=== PATIENT | female | born 1935 | race American Indian/Alaskan Native ===

== ENCOUNTER 2018-01-29 16:38 | Emergency (ER) | payer MEDICARE ==
[2018-01-29] MEDS ORDERED: ASPIRIN PO ONE (17:18)
[2018-01-29 18:22] LABS: Basophils # (Auto) 0.1 K/mm3 (0.0-0.1); Basophils % (Auto) 1.1 % (0.0-1.8); Eosinophils % (Auto) 0.5 % (0.0-4.3); Hematocrit 39.6 % (30.3-42.9); Hemoglobin 13.6 gm/dl (10.1-14.3); Lymphocytes # (Auto) 1.6 K/mm3 (1.2-5.4); Lymphocytes % (Auto) 21.1 % (13.4-35.0); Mean Corpuscular HGB Conc 34 % (30-34); Mean Corpuscular Hemoglobin 32 pg (28-32); Mean Corpuscular Volume 92 fl (79-97); Monocytes # (Auto) 0.4 K/mm3 (0.0-0.8); Monocytes % (Auto) 5.8 % (0.0-7.3); Platelet Count 213 K/mm3 (140-440); Red Blood Count 4.31 M/mm3 (3.65-5.03); Red Cell Distribution Width 13.3 % (13.2-15.2)
[2018-01-29 18:38] LABS: BUN/Creatinine Ratio 33; Blood Urea Nitrogen 20 mg/dL (7-17); Calcium 10.1 mg/dL (8.4-10.2); Hemolysis Index 7
[2018-01-29] MEDS ORDERED: NACL 0.9% 1000 ML 1,000 ML IV ONE (18:47)
[2018-01-29] MEDS ORDERED: ANTIVERT PO ONE (19:44)
--- NOTE | 2018-01-29 19:49 | Emergency Department Report ---
ED General Adult HPI - General Chief complaint: Weakness Stated complaint: VOMITING,DIZZY,NAUSEA,HBP, HIGH BLOOD SUGAR Time Seen by Provider: 01/29/18 18:46 Source: patient, family Mode of arrival: Wheelchair Limitations: No Limitations - History of Present Illness Initial comments: At 3 pm, pt developed vomiting x2 and nauseous. She became lightheaded/dizzy that was worse with standing. She thinks that it reminds her of the time that she had a tia a couple of months ago, but she had facial droop with that. When she woke up this morning, she was feeling like her normal self. No new medications or medication changes. Severity scale (0 -10): 0 - Related Data Home Medications Medication Instructions Recorded Confirmed Last Taken Losartan/Hydrochlorothiazide 1 each PO DAILY 02/20/14 12/10/17 12/09/17 23:00 [Hyzaar 100-25 TAB] Amlodipine Besylate [Norvasc] 5 mg PO DAILY 12/10/17 12/10/17 12/09/17 23:00 Bimatoprost 0.01%(Nf) [Lumigan 1 drop OU QHS 12/10/17 12/10/17 Unknown 0.01%(Nf)] Carvedilol [Coreg] 25 mg PO BID 12/10/17 12/10/17 Unknown Clopidogrel [Plavix] 75 mg PO QDAY 12/10/17 12/10/17 Unknown Furosemide [Lasix] 20 mg PO DAILY 12/10/17 12/10/17 Unknown Insulin Glargine,Hum.rec.anlog 25 units SQ QHS 12/10/17 12/10/17 12/08/17 22:00 [Lantus] Pantoprazole [Protonix TAB] 40 mg PO QDAY 12/10/17 12/10/17 Unknown glipiZIDE [Glipizide] 5 mg PO BID 12/10/17 12/10/17 Unknown Previous Rx's Medication Instructions Recorded Last Taken Type Atorvastatin [Lipitor] 40 mg PO QHS #30 tab 01/29/18 Unknown Rx Allergies Allergy/AdvReac Type Severity Reaction Status Date / Time levofloxacin [From Levaquin] Allergy Intermediate Itching Verified 12/10/17 12: 36 ED Review of Systems ROS: Stated complaint: VOMITING,DIZZY,NAUSEA,HBP, HIGH BLOOD SUGAR Other details as noted in HPI Comment: All other systems reviewed and negative Gastrointestinal: nausea, vomiting Neurological: weakness, vertigo ED Past Medical Hx - Past Medical History Hx Hypertension: Yes Hx Heart Attack/AMI: Yes (2005) Hx Diabetes: Yes Hx GERD: Yes Hx HIV: No 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 Patient does not have a known history of coronary artery disease. When she told the triage nurse blockage I believe she is referred to a chronic left bundle-branch block she has never been diagnosed with myocardial infarction. - Surgical History Additional Surgical History: tubal ligation. b/l corneal transplant - Social History Smoking Status: Never Smoker Substance Use Type: None - Medications Home Medications: Home Medications Medication Instructions Recorded Confirmed Last Taken Type Losartan/Hydrochlorothiazide 1 each PO DAILY 02/20/14 12/10/17 12/09/17 23:00 History [Hyzaar 100-25 TAB] Amlodipine Besylate [Norvasc] 5 mg PO DAILY 12/10/17 12/10/17 12/09/17 23:00 History Bimatoprost 0.01%(Nf) [Lumigan 1 drop OU QHS 12/10/17 12/10/17 Unknown History 0.01%(Nf)] Carvedilol [Coreg] 25 mg PO BID 12/10/17 12/10/17 Unknown History Clopidogrel [Plavix] 75 mg PO QDAY 12/10/17 12/10/17 Unknown History Furosemide [Lasix] 20 mg PO DAILY 12/10/17 12/10/17 Unknown History Insulin Glargine,Hum.rec.anlog 25 units SQ QHS 12/10/17 12/10/17 12/08/17 22:00 History [Lantus] Pantoprazole [Protonix TAB] 40 mg PO QDAY 12/10/17 12/10/17 Unknown History glipiZIDE [Glipizide] 5 mg PO BID 12/10/17 12/10/17 Unknown History Atorvastatin [Lipitor] 40 mg PO QHS #30 tab 01/29/18 Unknown Rx ED Physical Exam - General Limitations: No Limitations General appearance: alert, in no apparent distress - Head Head exam: Present: atraumatic, normocephalic - Eye Eye exam: Present: normal appearance - ENT ENT exam: Present: mucous membranes moist - Neck Neck exam: Present: normal inspection - Respiratory Respiratory exam: Present: normal lung sounds bilaterally. Absent: respiratory distress - Cardiovascular Cardiovascular Exam: Present: regular rate, normal rhythm. Absent: systolic murmur, diastolic murmur, rubs, gallop - GI/Abdominal GI/Abdominal exam: Present: soft, normal bowel sounds. Absent: tenderness - Extremities Exam Extremities exam: Present: normal inspection - Back Exam Back exam: Present: normal inspection - Neurological Exam Neurological exam: Present: alert, oriented X3, CN II-XII intact, motor sensory deficit - Psychiatric Psychiatric exam: Present: normal affect, normal mood - Skin Skin exam: Present: warm, dry, intact, normal color. Absent: rash ED Course Vital Signs 01/29/18 01/29/18 01/29/18 17:14 18:36 18:45 Temperature 97.4 F L 97.8 F Pulse Rate 54 L 59 L Respiratory 17 18 13 Rate Blood Pressure 206/76 Blood Pressure 149/95 [Left] O2 Sat by Pulse 100 99 99 Oximetry ED Medical Decision Making - Lab Data Result diagrams: 01/29/18 17:38 01/29/18 17:38 - EKG Data -: EKG Interpreted by [place] EKG shows normal: sinus rhythm, ST-T waves Rate: normal - EKG Data Interpretation: other (Old LBBB with sinus lizbet) - Medical Decision Making 82 yo female with pmhx HTN, CHF w/ an EF of 35%, CVA, DM that p/w sudden onset dizziness, vomiting, now resolved. Vital signs significant for HTN with a SBP in the 200s. Pt says that she hasn't taken her blood pressure meds today. Will give her home coreg/losartan/hctz. Pt was evaluated for a TIA 2 months ago and had a neg work up. Labs so far are unremarkable. No focal neuro deficits. EKG is unchanged from previous. Awaiting UA. Pt will receive IVF, meclizine, and home BP meds. If patient continues to improve she will likely be dc. Pt has a cardiology appt tomorrow and PCP appt in 2 days. Low suspicion for ACS. Low risk ABCD2 score for TIA. History and exam make TIA unlikely. Will treat/eval for dehydration vs vertigo vs UTI. - Differential Diagnosis arrhythmia, acs, cva, uti, sepsis, electrolyte abnormality, vertigo Critical care attestation.: If time is entered above; I have spent that time in minutes in the direct care of this critically ill patient, excluding procedure time. ED Disposition Clinical Impression: Dizziness, Vomiting Disposition: - MED SCREENING EXAM-CONT Is pt being admited?: No Does the pt Need Aspirin: No Condition: Stable Prescriptions: Atorvastatin [Lipitor] 40 mg PO QHS #30 tab Referrals: SEB MILLARD MD [Primary Care Provider] - 3-5 Days
[2018-01-29] MEDS ORDERED: HCTZ PO ONE (20:17)
[2018-01-29] MEDS ORDERED: COZAAR PO ONE (20:17)
[2018-01-29] MEDS ORDERED: COREG PO ONE (20:17)
--- NOTE | 2018-01-29 20:58 | Cat Scan Report ---
FINAL REPORT PROCEDURE: CT HEAD/BRAIN WO CON TECHNIQUE: Computerized tomography of the head was performed without contrast material. HISTORY: generalized weakness, c/f tia COMPARISON: 11/29/2017 FINDINGS: Skull and scalp: Normal. Paranasal sinuses: Normal. Ventricles and subarachnoid spaces: Are prominent consistent with cerebral atrophy appropriate for patient's age.. Cerebrum: There is mild degree bilateral periventricular nonspecific white matter hypodensity most likely representing chronic microangiopathy.. Cerebellum and brainstem: No evidence of hemorrhage, acute infarction or mass. Vasculature: Atherosclerotic calcification is noted involving bilateral internal carotid and vertebral arteries.. Comments: There is evidence of prior surgery involving the left orbit as seen on the prior study.. IMPRESSION: No acute intracranial abnormality.
[2018-01-29 21:53] VITALS: BP 178/81
[2018-01-29 22:07] LABS: Bacteria,Urine 1+ /HPF (Negative); Bilirubin,Urine NEG (Negative); Blood,Urine NEG (Negative); Color,Urine Yellow (Yellow); Mucus,Urine FEW /HPF; Urobilinogen,Urine < 2.0 mg/dL (<2.0)
== END 2018-01-29 22:56 | disposition home or self-care (01) ==
LOC: ED 16:38
DX: R42 Dizziness and giddiness (principal); R11.2 Nausea with vomiting, unspecified; I10 Essential (primary) hypertension; I25.2 Old myocardial infarction; E11.9 Type 2 diabetes mellitus without complications; K21.9 Gastro-esophageal reflux disease without esophagitis; Z98.51 Tubal ligation status; Z88.1 Allergy status to other antibiotic agents; Z79.4 Long term (current) use of insulin; Z79.84 Long term (current) use of oral hypoglycemic drugs
CPT/HCPCS: 36415; 70450; 80048; 81001; 82962; 84484; 85025; 93005; 93010; 96360; 96361; 99285; J7030

== ENCOUNTER 2018-04-09 13:11 | Emergency (ER) | payer SELFPAY ==
[2018-04-09] MEDS ORDERED: MORPHINE IV ONE (16:48)
--- NOTE | 2018-04-09 16:52 | Cat Scan Report ---
FINAL REPORT EXAM: CT HEAD/BRAIN WO CON HISTORY: headache TECHNIQUE: CT of the head was performed. No intravenous contrast was administered. PRIORS: 01/29/2018 FINDINGS: There is some low attenuation within the right cerebellum. It is suspicious for an infarct which is of unknown age but new since 01/29/2018. It may be old or late subacute. There is no significant mass effect. There is no associated hemorrhage. There are no abnormal extra-axial fluid collections. The ventricles are appropriate for brain volume. There is no skull fracture seen. The visualized aspects of the sinuses are clear. IMPRESSION: Low-attenuation involving right cerebellum with appearance suspicious for infarct. This is of unknown age but new since prior study of 01/29/2018. It may be late subacute or old. Consider MRI correlation.
--- NOTE | 2018-04-09 17:03 | Emergency Department Report ---
HPI - General Chief Complaint: Headache Time Seen by Provider: 04/09/18 16:25 - HPI HPI: 82-year-old female presents to the emergency department via EMS from her [facility] home with complaint of a right-sided headache has been going on since this morning. Patient has a history of CVA, diabetes, GERD, coronary artery disease, hypertension, left eye blindness. The patient has had a few different episodes of severe headaches in the past few months since the patient had her stroke. She is nonambulatory at baseline at this point. Patient recently moved into the [facility] facility. She was given some extra strength Tylenol for her discomfort prior to presentation with slight relief. Currently it is 5 out of 10. She denies any new weakness or any other neurological deficits. 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 Patient does not have a known history of coronary artery disease. When she told the triage nurse blockage I believe she is referred to a chronic left bundle-branch block she has never been diagnosed with myocardial infarction. - Surgical History Additional Surgical History: tubal ligation. b/l corneal transplant - Social History Smoking Status: Never Smoker Substance Use Type: None - Medications Home Medications: Home Medications Medication Instructions Recorded Confirmed Last Taken Type Losartan/Hydrochlorothiazide 1 each PO DAILY 02/20/14 03/12/18 12/09/17 23:00 History [Hyzaar 100-25 TAB] Amlodipine Besylate [Norvasc] 5 mg PO DAILY 12/10/17 03/12/18 12/09/17 23:00 History Bimatoprost 0.01%(Nf) [Lumigan 1 drop OU QHS 12/10/17 03/12/18 Unknown History 0.01%(Nf)] Carvedilol [Coreg] 25 mg PO BID 12/10/17 03/12/18 Unknown History Clopidogrel [Plavix] 75 mg PO QDAY 12/10/17 03/12/18 Unknown History Furosemide [Lasix] 20 mg PO DAILY 12/10/17 03/12/18 Unknown History Insulin Glargine,Hum.rec.anlog 25 units SQ QHS 05/03/12/18 12/08/17 22:00 History [Lantus] Pantoprazole [Protonix TAB] 40 mg PO QDAY 12/10/17 03/12/18 Unknown History glipiZIDE [Glipizide] 5 mg PO BID 12/10/17 03/12/18 Unknown History Aspirin [Aspirin BABY CHEW TAB] 81 mg PO QDAY 03/12/18 03/12/18 Unknown History Indomethacin [Indocin] 25 mg PO Q8H 03/12/18 03/12/18 Unknown History AtorvaSTATin [Lipitor] 40 mg PO QHS #30 tablet 03/20/18 Unknown Rx Meclizine [Antivert] 25 mg PO TID PRN #30 tablet 03/20/18 Unknown Rx Metoclopramide [Reglan TAB] 10 mg PO Q6H PRN #30 tablet 03/20/18 Unknown Rx ED Review of Systems ROS: Stated complaint: HEADACHE/SIDE OF HEAD Other details as noted in HPI Comment: All other systems reviewed and negative Constitutional: denies: chills, fever Eyes: denies: eye pain, eye discharge, vision change ENT: denies: ear pain, throat pain Respiratory: denies: cough, shortness of breath, wheezing Cardiovascular: denies: chest pain, palpitations Gastrointestinal: denies: abdominal pain, nausea, diarrhea Genitourinary: denies: urgency, dysuria, discharge Musculoskeletal: denies: back pain, joint swelling, arthralgia Skin: denies: rash, lesions Neurological: headache. denies: numbness Physical Exam - Physical Exam Vital Signs: Vital Signs 04/09/18 04/09/18 14:30 16:32 Temperature 98.1 F 98.4 F Pulse Rate 65 72 Respiratory 16 18 Rate Blood Pressure 121/61 Blood Pressure 126/55 [Left] O2 Sat by Pulse 99 96 Oximetry Physical Exam: GENERAL: The patient is well-developed well-nourished. HENT: Normocephalic. Atraumatic. Patient has moist mucous membranes. EYES: Extraocular motions are intact. NECK: Supple. Trachea is midline. CHEST/LUNGS: Clear to auscultation. There is no respiratory distress noted. HEART/CARDIOVASCULAR: Regular. There is no tachycardia. There is no murmur. ABDOMEN: Abdomen is soft, nontender. Patient has normal bowel sounds. There is no abdominal distention. SKIN: Skin is warm and dry. NEURO: The patient is awake, alert and cooperative. No facial asymmetry. The patient has normal speech. MUSCULOSKELETAL: There is no tenderness or deformity. There is no evidence of acute injury. ED Course Vital Signs 04/09/18 04/09/18 14:30 16:32 Temperature 98.1 F 98.4 F Pulse Rate 65 72 Respiratory 16 18 Rate Blood Pressure 121/61 Blood Pressure 126/55 [Left] O2 Sat by Pulse 99 96 Oximetry ED Medical Decision Making - Lab Data Result diagrams: 04/09/18 17:55 04/09/18 17:55 - Radiology Data Radiology results: report reviewed EXAM: CT HEAD/BRAIN WO CON HISTORY: headache TECHNIQUE: CT of the head was performed. No intravenous contrast was administered. PRIORS: 01/29/2018 FINDINGS: There is some low attenuation within the right cerebellum. It is suspicious for an infarct which is of unknown age but new since 01/29/2018. It may be old or late subacute. There is no significant mass effect. There is no associated hemorrhage. There are no abnormal extra-axial fluid collections. The ventricles are appropriate for brain volume. There is no skull fracture seen. The visualized aspects of the sinuses are clear. IMPRESSION: Low-attenuation involving right cerebellum with appearance suspicious for infarct. This is of unknown age but new since prior study of 01/29/2018. It may be late subacute or old. Consider MRI correlation. Transcribed By: BRANDON Dictated By: MARIXA SMITH MD Electronically Authenticated By: MARIXA SMITH MD Signed Date/Time: 04/09/18 1620 - Medical Decision Making Patient presents with acute right-sided headache since this morning. She does not appear to have any new deficits. Vital signs stable throughout her ED course. The patient had a CT scan of the head that shows a low attenuation area of the right cerebellum not seen on previous CT scan that was read by radiology is concerning or suspicious for infarct and an MRI is recommended. It is my plan to admit this patient to hospital for further evaluation and the case has been presented to the admitting hospitalist, Dr Toledo. - Differential Diagnosis CVA, TIA, migraine, tension headache Critical Care Time: No Critical care attestation.: If time is entered above; I have spent that time in minutes in the direct care of this critically ill patient, excluding procedure time. ED Disposition Clinical Impression: Abnormal CT scan, head Headache Qualifiers: Headache type: unspecified Headache chronicity pattern: unspecified pattern Intractability: not intractable Qualified Code(s): R51 - Headache Disposition: OP ADMIT IP TO THIS HOSP Is pt being admited?: Yes Condition: Fair Instructions: Acute Headache (ED) Referrals: PRIMARY CARE, [Primary Care Provider] - 3-5 Days Time of Disposition: 19:39
[2018-04-09 18:05] LABS: Basophils % (Auto) 0.4 % (0.0-1.8); Eosinophils % (Auto) 0.3 % (0.0-4.3); Hemoglobin 10.7 gm/dl (10.1-14.3); Lymphocytes # (Auto) 2.1 K/mm3 (1.2-5.4); Lymphocytes % (Auto) 17.1 % (13.4-35.0); Mean Corpuscular HGB Conc 36 % (30-34); Mean Corpuscular Hemoglobin 33 pg (28-32); Mean Corpuscular Volume 92 fl (79-97); Platelet Count 275 K/mm3 (140-440); Red Blood Count 3.26 M/mm3 (3.65-5.03); Red Cell Distribution Width 13.2 % (13.2-15.2)
[2018-04-09 18:29] LABS: Alanine Aminotransferase 11 units/L (7-56); BUN/Creatinine Ratio 29; Blood Urea Nitrogen 23 mg/dL (7-17); Calcium 9.2 mg/dL (8.4-10.2); Hemolysis Index 46
--- NOTE | 2018-04-09 18:54 | Event Note ---
Date: 04/09/18 patient came for H/A Unable to walk for 3 months No new focaldeficits CT Head no new infarcts DDx Heaadache Debility
[2018-04-09 18:56] VITALS: BP 109/58
== END 2018-04-09 19:40 | disposition admitted as inpatient to this hospital (09) ==
LOC: ED 13:11
DX: R93.0 Abnormal findings on diagnostic imaging of skull and head, not elsewhere classified (principal); R51 Headache; I10 Essential (primary) hypertension; E11.9 Type 2 diabetes mellitus without complications; K21.9 Gastro-esophageal reflux disease without esophagitis; I25.2 Old myocardial infarction; Z86.73 Personal history of transient ischemic attack (TIA), and cerebral infarction without residual deficits; Z98.51 Tubal ligation status; Z79.899 Other long term (current) drug therapy; Z88.1 Allergy status to other antibiotic agents
CPT/HCPCS: 36415; 70450; 80053; 85025; 96374; 99285; J2270

== ENCOUNTER 2018-10-26 12:04 | Emergency (ER) | payer MEDICARE ==
[2018-10-26 12:23] VITALS: BP 98/62
--- NOTE | 2018-10-26 12:27 | Emergency Department Report ---
Chief Complaint: Allergic Reaction Stated Complaint: (R) SIDE OF FACE SWOLLEN Time Seen by Provider: 10/26/18 12:22 - HPI History of Present Illness: This is a 82 y.o. female that presents with right sided facial swelling x 4 days. Patient was seen by dentist 2 days ago and told swelling isn't from teeth. - Exam Vital Signs: Vital Signs 10/26/18 12:22 Temperature 98.2 F Pulse Rate 47 L Respiratory 16 Rate Blood Pressure 98/62 O2 Sat by Pulse 97 Oximetry MSE screening note: Focused history and physical exam performed. Due to findings the following was ordered: ACC for further evaluation ED Disposition for MSE Condition: Stable
--- NOTE | 2018-10-26 14:00 | Emergency Department Report ---
ED General Adult HPI - General Chief complaint: Allergic Reaction Stated complaint: (R) SIDE OF FACE SWOLLEN Time Seen by Provider: 10/26/18 12:22 Source: patient Mode of arrival: Wheelchair Limitations: Physical Limitation - History of Present Illness Initial comments: Patient is a 82-year-old female who is presenting with some right chin swelling for the last 4 days. Patient was taken to the dentist to see of the facial swelling secondary to her teeth but x-rays were done and there is no evidence of dental abscess. She has no pain to palpation to the teeth. Patient states the swelling is progressively worsening. She denies any fevers chills nausea vomiting diarrhea difficulty swallowing at this time. - Related Data Home Medications Medication Instructions Recorded Confirmed Last Taken Losartan/Hydrochlorothiazide 1 each PO DAILY 02/20/14 03/12/18 12/09/17 23:00 [Hyzaar 100-25 TAB] Amlodipine Besylate [Norvasc] 5 mg PO DAILY 12/10/17 03/12/18 12/09/17 23:00 Bimatoprost 0.01%(Nf) [Lumigan 1 drop OU QHS 12/10/17 03/12/18 Unknown 0.01%(Nf)] Carvedilol [Coreg] 25 mg PO BID 12/10/17 03/12/18 Unknown Clopidogrel [Plavix] 75 mg PO QDAY 12/10/17 03/12/18 Unknown Furosemide [Lasix] 20 mg PO DAILY 12/10/17 03/12/18 Unknown Insulin Glargine,Hum.rec.anlog 25 units SQ QHS 12/10/17 03/12/18 12/08/17 22:00 [Lantus] Pantoprazole [Protonix TAB] 40 mg PO QDAY 12/10/17 03/12/18 Unknown glipiZIDE [Glipizide] 5 mg PO BID 12/10/17 03/12/18 Unknown Aspirin [Aspirin BABY CHEW TAB] 81 mg PO QDAY 03/12/18 03/12/18 Unknown Indomethacin [Indocin] 25 mg PO Q8H 03/12/18 03/12/18 Unknown Previous Rx's Medication Instructions Recorded Last Taken Type AtorvaSTATin [Lipitor] 40 mg PO QHS #30 tablet 03/20/18 Unknown Rx Meclizine [Antivert] 25 mg PO TID PRN #30 tablet 03/20/18 Unknown Rx Metoclopramide [Reglan TAB] 10 mg PO Q6H PRN #30 tablet 03/20/18 Unknown Rx Clindamycin [Clindamycin CAP] 300 mg PO Q8H #21 cap 10/26/18 Unknown Rx Ibuprofen [Ibu] 400 mg PO Q4-6H PRN #20 tablet 10/26/18 Unknown Rx traMADol [Ultram] 50 mg PO Q6HR PRN #10 tablet 10/26/18 Unknown Rx Allergies Allergy/AdvReac Type Severity Reaction Status Date / Time levofloxacin [From Levaquin] Allergy Intermediate Itching Verified 10/26/18 12:05 ED Review of Systems ROS: Stated complaint: (R) SIDE OF FACE SWOLLEN Other details as noted in HPI Comment: All other systems reviewed and negative 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 Patient does not have a known history of coronary artery disease. When she told the triage nurse blockage I believe she is referred to a chronic left bundle-branch block she has never been diagnosed with myocardial infarction. - Surgical History Past Surgical History?: Yes Additional Surgical History: tubal ligation. b/l corneal transplant - Social History Smoking Status: Never Smoker Substance Use Type: None - Medications Home Medications: Home Medications Medication Instructions Recorded Confirmed Last Taken Type Losartan/Hydrochlorothiazide 1 each PO DAILY 02/20/14 03/12/18 12/09/17 23:00 History [Hyzaar 100-25 TAB] Amlodipine Besylate [Norvasc] 5 mg PO DAILY 12/10/17 03/12/18 12/09/17 23:00 History Bimatoprost 0.01%(Nf) [Lumigan 1 drop OU QHS 12/10/17 03/12/18 Unknown History 0.01%(Nf)] Carvedilol [Coreg] 25 mg PO BID 12/10/17 03/12/18 Unknown History Clopidogrel [Plavix] 75 mg PO QDAY 12/10/17 03/12/18 Unknown History Furosemide [Lasix] 20 mg PO DAILY 12/10/17 03/12/18 Unknown History Insulin Glargine,Hum.rec.anlog 25 units SQ QHS 12/10/17 03/12/18 12/08/17 22:00 History [Lantus] Pantoprazole [Protonix TAB] 40 mg PO QDAY 12/10/17 03/12/18 Unknown History glipiZIDE [Glipizide] 5 mg PO BID 12/10/17 03/12/18 Unknown History Aspirin [Aspirin BABY CHEW TAB] 81 mg PO QDAY 03/12/18 03/12/18 Unknown History Indomethacin [Indocin] 25 mg PO Q8H 03/12/18 03/12/18 Unknown History AtorvaSTATin [Lipitor] 40 mg PO QHS #30 tablet 03/20/18 Unknown Rx Meclizine [Antivert] 25 mg PO TID PRN #30 tablet 03/20/18 Unknown Rx Metoclopramide [Reglan TAB] 10 mg PO Q6H PRN #30 tablet 03/20/18 Unknown Rx Clindamycin [Clindamycin CAP] 300 mg PO Q8H #21 cap 10/26/18 Unknown Rx Ibuprofen [Ibu] 400 mg PO Q4-6H PRN #20 tablet 10/26/18 Unknown Rx traMADol [Ultram] 50 mg PO Q6HR PRN #10 tablet 10/26/18 Unknown Rx ED Physical Exam - General Limitations: Physical Limitation General appearance: alert, in no apparent distress - Head Head exam: Present: atraumatic, normocephalic - Eye Eye exam: Present: normal appearance - ENT ENT exam: Present: mucous membranes moist - Neck Neck exam: Present: normal inspection - Respiratory Respiratory exam: Present: normal lung sounds bilaterally. Absent: respiratory distress, wheezes, rales, rhonchi - Cardiovascular Cardiovascular Exam: Present: regular rate, normal rhythm, normal heart sounds. Absent: systolic murmur, diastolic murmur, rubs, gallop - GI/Abdominal GI/Abdominal exam: Present: soft, normal bowel sounds. Absent: distended, tenderness, guarding, rebound, rigid - Extremities Exam Extremities exam: Present: normal inspection - Back Exam Back exam: Present: normal inspection - Neurological Exam Neurological exam: Present: alert, oriented X3 - Psychiatric Psychiatric exam: Present: normal affect, normal mood - Skin Skin exam: Present: warm, dry, intact, normal color, other (patient with us some swollen indurated erythematous skin to the right chin. There is some mild edema to the right lower lip. There is no evidence of fluctuance. There is no sublingual swelling or tenderness.). Absent: rash ED Course Vital Signs 10/26/18 12:22 Temperature 98.2 F Pulse Rate 47 L Respiratory 16 Rate Blood Pressure 98/62 O2 Sat by Pulse 97 Oximetry ED Medical Decision Making - Medical Decision Making Patient to be started on Clindamycin to cover for staph infection patient discharged home with treatment for her right chin cellulitis Critical care attestation.: If time is entered above; I have spent that time in minutes in the direct care of this critically ill patient, excluding procedure time. ED Disposition Clinical Impression: Cellulitis Qualifiers: Site of cellulitis: face Qualified Code(s): L03.211 - Cellulitis of face Disposition: -01 TO HOME OR SELFCARE Is pt being admited?: No Does the pt Need Aspirin: No Condition: Stable Instructions: Cellulitis (ED) Referrals: SEB MILLARD MD [Primary Care Provider] - 3-5 Days Time of Disposition: 14:01
== END 2018-10-26 14:21 | disposition home or self-care (01) ==
LOC: ED 12:04
DX: L03.211 Cellulitis of face (principal); I10 Essential (primary) hypertension; Z86.73 Personal history of transient ischemic attack (TIA), and cerebral infarction without residual deficits; I25.2 Old myocardial infarction; E11.9 Type 2 diabetes mellitus without complications; K21.9 Gastro-esophageal reflux disease without esophagitis; Z98.51 Tubal ligation status; Z79.4 Long term (current) use of insulin; Z88.1 Allergy status to other antibiotic agents
CPT/HCPCS: 99282

== ENCOUNTER 2018-12-03 10:52 | Inpatient (IN) | payer MEDICARE ==
--- NOTE | 2018-12-03 11:18 | Emergency Department Report ---
Blank Doc - Documentation Documentation: This is a 83-year-old female that presents with multiple episodes of syncopal. Was sent by PCP. This initial assessment/diagnostic orders/clinical plan/treatment(s) is/are subject to change based on patient's health status, clinical progression and re- assessment by fellow clinical providers in the ED. Further treatment and workup at subsequent clinical providers discretion. Patient/guardians urged not to elope from the ED as their condition may be serious if not clinically assessed and managed. Initial orders include: 1- Patient sent to MAIN ED for further evaluation and treatment 2- EKG 3- labs 4- UA
--- NOTE | 2018-12-03 12:39 | Emergency Department Report ---
ED General Adult HPI - General Chief complaint: Syncope Stated complaint: PASSED OUT/DOC ORDERED Time Seen by Provider: 12/03/18 11:16 Source: patient, family, RN notes reviewed, old records reviewed Mode of arrival: Wheelchair Limitations: Physical Limitation - History of Present Illness Initial comments: Primary care Dr.: Dr. Horacio Michael Past medical history: Cataract, blind in left eye, hypertension, high cholesterol, heart disease, MRI confirmed stroke at this hospital Ejection fraction 40-45% This is an 83-year-old female, whom I have evaluated in the past. She is accompanied by her daughter. She presents to the emergency room after being instructed to present here for multiple episodes of "falling out." As per the patient's daughter, over the past couple weeks, patient will have episodes of loss of consciousness, slurred speech and altered mental status. There is no endorsed pain. These episodes are intermittent, painless, did not appear to have exacerbating or relieving factors. Currently, in the emergency room, the patient denies physical complaints. She denies headache, neck pain, chest pain, abdominal pain, shortness of breath, nausea, vomiting, urinary symptoms, rash. The patient's daughters at the bedside, and she is not sure if the patient is taking all of her medicines. She is not sure if the patient has received new or different medications. Currently, advanced directives and goals of care have not been definitively established. -: week(s) Consistency: intermittent Improves with: none Worsens with: none - Related Data Home Medications Medication Instructions Recorded Confirmed Last Taken Losartan/Hydrochlorothiazide 1 each PO DAILY 02/20/14 12/03/18 12/09/17 23:00 [Hyzaar 100-25 TAB] Amlodipine Besylate [Norvasc] 5 mg PO DAILY 12/10/17 12/03/18 12/09/17 23:00 Bimatoprost 0.01%(Nf) [Lumigan 1 drop OU BID 12/10/17 12/03/18 Unknown 0.01%(Nf)] Carvedilol [Coreg] 25 mg PO BID 12/10/17 12/03/18 Unknown Clopidogrel [Plavix] 75 mg PO DAILY 12/10/17 12/03/18 Unknown Furosemide [Lasix] 20 mg PO DAILY 12/10/17 12/03/18 Unknown Pantoprazole [Protonix TAB] 40 mg PO DAILY 12/10/17 12/03/18 Unknown glipiZIDE [Glipizide] 5 mg PO BID 12/10/17 12/03/18 Unknown Aspirin [Aspirin BABY CHEW TAB] 81 mg PO DAILY 03/12/18 12/03/18 Unknown Docusate Sodium [Colace] 100 mg PO BID PRN 12/03/18 12/03/18 Unknown Insulin Lispro Protamin/Lispro 24 units SQ BID 12/03/18 12/03/18 Unknown [HumaLOG Mix 75-25 Kwikpen] Previous Rx's Medication Instructions Recorded Last Taken Type AtorvaSTATin [Lipitor] 40 mg PO QHS #30 tablet 03/20/18 Unknown Rx Allergies Allergy/AdvReac Type Severity Reaction Status Date / Time levofloxacin [From Levaquin] Allergy Intermediate Itching Verified 10/26/18 12:05 ED Review of Systems ROS: Stated complaint: PASSED OUT/DOC ORDERED Other details as noted in HPI Constitutional: malaise Eyes: denies: eye discharge ENT: denies: epistaxis Respiratory: denies: cough Cardiovascular: syncope. denies: chest pain Gastrointestinal: denies: abdominal pain, nausea, vomiting Genitourinary: denies: dysuria Musculoskeletal: denies: back pain Skin: denies: lesions Neurological: weakness, confusion Psychiatric: denies: anxiety 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 Patient does not have a known history of coronary artery disease. When she told the triage nurse blockage I believe she is referred to a chronic left bundle-branch block she has never been diagnosed with myocardial infarction. - Surgical History Past Surgical History?: Yes Additional Surgical History: tubal ligation. b/l corneal transplant - Social History Smoking Status: Unknown if ever smoked Substance Use Type: None - Medications Home Medications: Home Medications Medication Instructions Recorded Confirmed Last Taken Type Losartan/Hydrochlorothiazide 1 each PO DAILY 02/20/14 12/03/18 12/09/17 23:00 History [Hyzaar 100-25 TAB] Amlodipine Besylate [Norvasc] 5 mg PO DAILY 12/10/17 12/03/18 12/09/17 23:00 History Bimatoprost 0.01%(Nf) [Lumigan 1 drop OU BID 12/10/17 12/03/18 Unknown History 0.01%(Nf)] Carvedilol [Coreg] 25 mg PO BID 12/10/17 12/03/18 Unknown History Clopidogrel [Plavix] 75 mg PO DAILY 12/10/17 12/03/18 Unknown History Furosemide [Lasix] 20 mg PO DAILY 12/10/17 12/03/18 Unknown History Pantoprazole [Protonix TAB] 40 mg PO DAILY 12/10/17 12/03/18 Unknown History glipiZIDE [Glipizide] 5 mg PO BID 12/10/17 12/03/18 Unknown History Aspirin [Aspirin BABY CHEW TAB] 81 mg PO DAILY 03/12/18 12/03/18 Unknown History AtorvaSTATin [Lipitor] 40 mg PO QHS #30 tablet 03/20/18 12/03/18 Unknown Rx Docusate Sodium [Colace] 100 mg PO BID PRN 12/03/18 12/03/18 Unknown History Insulin Lispro Protamin/Lispro 24 units SQ BID 12/03/18 12/03/18 Unknown History [HumaLOG Mix 75-25 Kwikpen] ED Physical Exam - General Limitations: No Limitations, Other (patient is a poor historian. Patient has no recollection of the events.) General appearance: alert, in no apparent distress - Head Head exam: Present: atraumatic, normocephalic - Eye Eye exam: Present: normal appearance (left eye has chronic appearing cataract), EOMI (in the right eye, visual acuity intact to finger counting, color perception, reading at a close distance) - ENT ENT exam: Present: normal exam, normal orophraynx, mucous membranes moist, normal external ear exam - Neck Neck exam: Present: normal inspection, full ROM. Absent: tenderness, meningismus - Respiratory Respiratory exam: Present: normal lung sounds bilaterally. Absent: respiratory distress - Cardiovascular Cardiovascular Exam: Present: regular rate, normal rhythm, normal heart sounds. Absent: bradycardia, tachycardia, irregular rhythm, rubs, gallop - GI/Abdominal GI/Abdominal exam: Present: soft. Absent: distended, tenderness, guarding, rebound, rigid, pulsatile mass - Extremities Exam Extremities exam: Present: normal inspection, full ROM, pedal edema, other (2+ pulses noted in the bilateral upper, lower extremities. Compartments soft. No long bony tenderness. The pelvis is stable.). Absent: calf tenderness - Back Exam Back exam: Present: normal inspection, full ROM. Absent: tenderness, CVA tenderness (R), CVA tenderness (L), paraspinal tenderness, vertebral tenderness - Neurological Exam Neurological exam: Present: alert, other (Extraocular movements intact. Tongue midline. No facial droop. Facial sensation intact to light touch in the V1, V2, V3 distribution bilaterally. 5 and 5 strength in 4 extremities.. Sensation is intact to light touch in 4 extremities.). Absent: motor sensory deficit - Psychiatric Psychiatric exam: Present: normal affect, normal mood - Skin Skin exam: Present: warm, dry, intact, normal color. Absent: rash ED Course Vital Signs 12/03/18 12/03/18 12/03/18 11:18 11:50 12:00 Temperature 98.4 F Pulse Rate 82 75 79 Respiratory 16 13 13 Rate Blood Pressure 170/72 186/81 O2 Sat by Pulse 98 99 Oximetry 12/03/18 12/03/18 12/03/18 12:15 12:31 12:45 Temperature Pulse Rate 78 77 78 Respiratory 13 16 14 Rate Blood Pressure 181/88 181/88 181/88 O2 Sat by Pulse 97 98 99 Oximetry 12/03/18 12/03/18 12/03/18 13:01 13:15 13:31 Temperature Pulse Rate 78 78 78 Respiratory 14 14 16 Rate Blood Pressure 181/88 200/97 200/97 O2 Sat by Pulse 100 97 98 Oximetry 12/03/18 12/03/18 12/03/18 13:45 14:00 14:15 Temperature Pulse Rate 77 77 77 Respiratory 11 L 14 11 L Rate Blood Pressure 200/97 191/99 191/99 O2 Sat by Pulse 99 100 98 Oximetry 12/03/18 12/03/18 12/03/18 14:31 14:45 15:00 Temperature Pulse Rate 74 73 75 Respiratory 11 L 13 12 Rate Blood Pressure 191/99 191/99 191/91 O2 Sat by Pulse 99 100 100 Oximetry 12/03/18 12/03/18 15:15 15:31 Temperature Pulse Rate 84 78 Respiratory 13 13 Rate Blood Pressure 191/91 191/91 O2 Sat by Pulse 99 97 Oximetry - Reevaluation(s) Reevaluation #1: 12/03/18 13:26 Differential diagnosis, including but not limited to: Orthostasis, vagal event, structural cardiac disease, dehydration, TIA, dementia Assessment and plan: A 3-year-old female with reported multiple episodes of syncope,/near syncope, nonspecific disturbance, now resolved. Symptoms intermittent, stuttering, and patient is is at her neurologic baseline at this time, when compared to prior documented examinations, and as per family's collateral history. Extensive discussion had with daughter regarding importance of clarifying goals of care and advanced directives. The daughter states that she will engage family in the discussion to further clarify. Laboratory studies are pending at this time. Family is amenable to hospitalization for further evaluation and workup. Reevaluation #2: 12/03/18 13:28 The patient is not tachycardic, she is not hypoxic, the daughter endorses no recent hospitalizations, road trips or surgeries. There is no leg pain or leg swelling. Reevaluation #3: 12/03/18 14:24 Laboratory studies suggest bacteriuria versus UTI, as well as hyperglycemia without DKA. Patient resting comfortably, and in no acute distress. I go back to evaluate the patient, and she is smiling, calm and comfortable, and appears to be in no acute distress. Discussed these findings with patient and family. The Hospital physician, Dr. Cesar will admit the patient to the medical service. ED Medical Decision Making - Lab Data Result diagrams: 12/03/18 13:20 12/03/18 13:20 Vital Signs 12/03/18 12/03/18 12/03/18 11:18 11:50 12:00 Temperature 98.4 F Pulse Rate 82 75 79 Respiratory 16 13 13 Rate Blood Pressure 170/72 186/81 O2 Sat by Pulse 98 99 Oximetry 12/03/18 12/03/18 12/03/18 12:15 12:31 12:45 Temperature Pulse Rate 78 77 78 Respiratory 13 16 14 Rate Blood Pressure 181/88 181/88 181/88 O2 Sat by Pulse 97 98 99 Oximetry 12/03/18 13:01 Temperature Pulse Rate 78 Respiratory 14 Rate Blood Pressure 181/88 O2 Sat by Pulse 100 Oximetry - EKG Data 12/03/18 13:28 EKG shows a sinus rhythm, left axis deviation, borderline left anterior fascicular block, poor PROGRESSION, left bundle branch block morphology, interventricular conduction delay, premature ventricular contractions, abnormal EKG, not consistent with ST elevation myocardial infarction, grossly unchanged from prior EKG from 2017. - Radiology Data Radiology results: report reviewed, image reviewed Print Report Referring Physician: TAMMIE MALIK Patient Name: PEDRO FUNK Date of : 1935 Sex: Female Report Date: 2018-12-03 Report Status: Finalized Findings [facility] [address] [id number] Cat Scan Report Signed Patient: PEDRO FUNK MR#: [id number] 34 : 1935 Acct:[id number] Age/Sex: 83 / F ADM Date: 12/03/18 Loc: ED Attending Dr: Ordering Physician: TAMMIE MALIK NP Date of Service: 12/03/18 Procedure(s): CT head/brain wo con Accession Number(s): [id number] cc: TAMMIE MALIK NP PROCEDURE: CT HEAD/BRAIN WO CON TECHNIQUE: Computerized tomography of the head was performed without contrast material. CT DOSE LENGTH PRODUCT: 928.4 mGy-cm. HISTORY: Syncope COMPARISONS: CT head April 09, 2018. FINDINGS: Decreased attenuation regions in the periventricular and subcortical white matter are nonspecific and may represent small vessel ischemic disease, encephalopathy, edema, or a demyelinating process. Small vessel ischemic disease (leukoaraiosis) favored. Vascular calcifications. There is no evidence for acute ischemia. There is no hemorrhage. There is no midline shift. There is no hydrocephalus. There is no mass. Age appropriate garcia-white matter attenuation is noted. There is no calvarial fracture. The temporal bones demonstrate aerated mastoid air cells. The middle ears appear unremarkable. Paranasal sinuses are unremarkable. Globes are intact. IMPRESSION: * No acute intracranial findings. * Chronic ischemic disease. This document is electronically signed by Bhupendra Lynn MD., Dec 03 2018 01:11:33 PM ET Transcribed By: TYM Dictated By: BHUPENDRA LYNN MD Electronically Authenticated By: BHUPENDRA LYNN MD Signed Date/Time: 12/03/18 1314 Critical care attestation.: If time is entered above; I have spent that time in minutes in the direct care of this critically ill patient, excluding procedure time. ED Disposition Clinical Impression: Debility, Inability to walk, Cardiomyopathy, Dementia, History of syncope, UTI (urinary tract infection) Disposition: DC-09 OP ADMIT IP TO THIS HOSP Is pt being admited?: Yes Does the pt Need Aspirin: Yes Condition: Fair
--- NOTE | 2018-12-03 13:14 | Cat Scan Report ---
PROCEDURE: CT HEAD/BRAIN WO CON TECHNIQUE: Computerized tomography of the head was performed without contrast material. CT DOSE LENGTH PRODUCT: 928.4 mGy-cm. HISTORY: Syncope COMPARISONS: CT head April 09, 2018. FINDINGS: Decreased attenuation regions in the periventricular and subcortical white matter are nonspecific and may represent small vessel ischemic disease, encephalopathy, edema, or a demyelinating process. Smal l vessel ischemic disease (leukoaraiosis) favored. Vascular calcifications. There is no evidence for acute ischemia. There is no hemorrhage. There is no midline shift. There is no hydrocephalus. There is no mass. Age appropriate garcia-white matter attenuation is noted. There is no calvarial fracture. The temporal bones demonstrate aerated mastoid air cells. The middle ears appear unremarkable. Paranasal sinuses are unremarkable. Globes are intact. IMPRESSION: * No acute intracranial findings. * Chronic ischemic disease. This document is electronically signed by Bhupendra Solomon MD., Dec 03 2018 01:11:33 PM ET
[2018-12-03] MEDS ORDERED: BABY ASPIRIN PO ONE (13:29)
[2018-12-03 13:43] LABS: Basophils # (Auto) 0.1 K/mm3 (0.0-0.1); Basophils % (Auto) 0.8 % (0.0-1.8); Eosinophils % (Auto) 0.4 % (0.0-4.3); Hematocrit 38.2 % (30.3-42.9); Hemoglobin 13.4 gm/dl (10.1-14.3); Lymphocytes # (Auto) 2.3 K/mm3 (1.2-5.4); Lymphocytes % (Auto) 31.2 % (13.4-35.0); Mean Corpuscular HGB Conc 35 % (30-34); Mean Corpuscular Volume 91 fl (79-97); Monocytes # (Auto) 0.5 K/mm3 (0.0-0.8); Monocytes % (Auto) 7.2 % (0.0-7.3); Platelet Count 251 K/mm3 (140-440); Red Blood Count 4.19 M/mm3 (3.65-5.03); Red Cell Distribution Width 13.3 % (13.2-15.2)
[2018-12-03 13:53] LABS: INR 1.03 (0.87-1.13); Partial Thromboplastin Time 27.2 Sec. (24.2-36.6)
[2018-12-03 13:56] LABS: Bacteria,Urine 1+ /HPF (Negative); Bilirubin,Urine NEG (Negative); Blood,Urine NEG (Negative); Color,Urine Yellow (Yellow); Hyaline Casts,Urine 1 /LPF; Mucus,Urine FEW /HPF; Urobilinogen,Urine < 2.0 mg/dL (<2.0)
[2018-12-03 14:08] LABS: Creatine Kinase MB 1.1 ng/mL (0.0-4.0)
[2018-12-03 14:10] LABS: Alanine Aminotransferase 14 units/L (7-56); Albumin 3.8 g/dL (3.9-5); BUN/Creatinine Ratio 24; Blood Urea Nitrogen 17 mg/dL (7-17); Calcium 9.4 mg/dL (8.4-10.2); Hemolysis Index 4
[2018-12-03] MEDS ORDERED: HumuLIN R IV ONE (14:20)
[2018-12-03] MEDS ORDERED: MACROBID PO ONE ×2 (14:20→18:00)
[2018-12-03] MEDS ORDERED: DULCOLAX PR PRN (14:29)
[2018-12-03] MEDS ORDERED: REGLAN PO PRN (14:29)
[2018-12-03] MEDS ORDERED: SODIUM CHLORIDE FLUSH SYRINGE 10 ML IV PRN (14:29)
[2018-12-03] MEDS ORDERED: ZOFRAN IV PRN (14:29)
[2018-12-03] MEDS ORDERED: PHENERGAN PR PRN (14:29)
[2018-12-03] MEDS ORDERED: TYLENOL PO PRN (14:29)
[2018-12-03] MEDS ORDERED: MILK OF MAGNESIA PO PRN (14:29)
--- NOTE | 2018-12-03 14:29 | History and Physical Report ---
History of Present Illness Chief complaint: She keeps passing out History of present illness: 83 YO Female with Systolic CHF (EF 35%), CVA, Debility, Dementia, HTN, HLD, DM, GERD, Vertigo presents to ED for evaluation. Pt is confused/lethargic and unable to provide history. Pt history provided by daughter, who is at bedside during exam and interview. As per daughter, the patient has experienced recurrent episodes of slurred speech, confusion, and loss of consciousness over the past 2 weeks with the most recent episode occurring upon waking from sleep this morning around 0930 hrs. Pt transported to [facility] via private vehicle. Pt seen and evaluated in ED and found to have symptoms consistent with CVA. Code stroke was called. Pt is outside therapeutic window for TPA at time of my exam. PT also found to have UTI. Neurology consulted in ED. Prior admission on 03/12/18 reviewed. All listed medication reconciled at time of admission. Past History Past Medical History: diabetes, GERD, heart failure, hypertension, hyperlipidemia, stroke Past Surgical History: Other (Tubal ligation, corneal transplant) Social history: , lives with family. denies: smoking, alcohol abuse, prescription drug abuse Family history: diabetes, hypertension Medications and Allergies Allergies Allergy/AdvReac Type Severity Reaction Status Date / Time levofloxacin [From Levaquin] Allergy Intermediate Itching Verified 10/26/18 12:05 Home Medications Medication Instructions Recorded Confirmed Last Taken Type Losartan/Hydrochlorothiazide 1 each PO DAILY 02/20/14 12/03/18 12/09/17 23:00 History [Hyzaar 100-25 TAB] Amlodipine Besylate [Norvasc] 5 mg PO DAILY 12/10/17 12/03/18 12/09/17 23:00 History Bimatoprost 0.01%(Nf) [Lumigan 1 drop OU BID 12/10/17 12/03/18 Unknown History 0.01%(Nf)] Carvedilol [Coreg] 25 mg PO BID 12/10/17 12/03/18 Unknown History Clopidogrel [Plavix] 75 mg PO DAILY 12/10/17 12/03/18 Unknown History Furosemide [Lasix] 20 mg PO DAILY 12/10/17 12/03/18 Unknown History Pantoprazole [Protonix TAB] 40 mg PO DAILY 12/10/17 12/03/18 Unknown History glipiZIDE [Glipizide] 5 mg PO BID 12/10/17 12/03/18 Unknown History Aspirin [Aspirin BABY CHEW TAB] 81 mg PO DAILY 03/12/18 12/03/18 Unknown History AtorvaSTATin [Lipitor] 40 mg PO QHS #30 tablet 03/20/18 12/03/18 Unknown Rx Docusate Sodium [Colace] 100 mg PO BID PRN 12/03/18 12/03/18 Unknown History Insulin Lispro Protamin/Lispro 24 units SQ BID 12/03/18 12/03/18 Unknown History [HumaLOG Mix 75-25 Kwikpen] Review of Systems Constitutional: no weight loss, no weight gain, no fever, no chills Ears, nose, mouth and throat: no ear pain, no ear discharge, no nose pain, no nasal congestion Breasts: no change in shape, no swelling, no mass Cardiovascular: syncope, no chest pain, no palpitations, no rapid/irregular heart beat, no edema, no lightheadedness Respiratory: no cough with sputum, no excessive sputum, no hemoptysis, no shortness of breath Gastrointestinal: no nausea, no vomiting, no diarrhea, no constipation Genitourinary Female: no pelvic pain, no flank pain, no menorrhagia, no dysuria, no urinary frequency Rectal: no pain, no incontinence, no bleeding Musculoskeletal: no neck stiffness, no neck pain, no shooting arm pain, no arm numbness/tingling Integumentary: no rash, no pruritis, no redness, no wounds, no jaundice Psychiatric: no memory loss, no sleep disturbances, no insomnia, no hypersomnia, no change in appetite, no suicidal ideation Endocrine: no cold intolerance, no heat intolerance, no polyphagia, no polydipsia, no polyuria, no excessive sweating Hematologic/Lymphatic: no easy bruising, no easy bleeding, no lymphadenopathy, no lymphedema Allergic/Immunologic: no urticaria, no allergic rhinitis, no wheezing, no persistent infections, no anaphylaxis Exam - Constitutional Vitals: Temp Pulse Resp BP Pulse Ox 98.4 F 78 14 181/88 100 12/03/18 11:18 12/03/18 13:01 12/03/18 13:01 12/03/18 13:01 12/03/18 13:01 General appearance: Present: mild distress - EENT Eyes: Present: PERRL ENT: hearing intact, clear oral mucosa - Neck Neck: Present: supple, normal ROM - Respiratory Respiratory effort: normal Respiratory: bilateral: CTA - Cardiovascular Heart Sounds: Present: S1 & S2. Absent: rub, click - Extremities Extremities: pulses symmetrical, No edema Peripheral Pulses: within normal limits - Abdominal General gastrointestinal: Present: soft, non-tender, non-distended, normal bowel sounds Female genitourinary: Present: normal - Integumentary Integumentary: Present: clear, warm, dry - Musculoskeletal Musculoskeletal: generalized weakness - Psychiatric Psychiatric: appropriate mood/affect, intact judgment & insight - Neurologic Neurologic: CNII-XII intact, moves all extremities Results - Labs CBC & Chem 7: 12/03/18 13:20 12/03/18 13:20 Labs: Abnormal lab results 12/03/18 12/03/18 12/03/18 Range/Units 12:50 13:20 13:20 MCHC 35 H (30-34) % Sodium (137-145) mmol/L Chloride (98-107) mmol/L Glucose (65-100) mg/dL Total Creatine Kinase 27 L (30-135) units/L Albumin (3.9-5) g/dL Urine WBC (Auto) 33.0 H (0.0-6.0) /HPF 12/03/18 Range/Units 13:20 MCHC (30-34) % Sodium 134 L (137-145) mmol/L Chloride 94.2 L (98-107) mmol/L Glucose 427 H (65-100) mg/dL Total Creatine Kinase (30-135) units/L Albumin 3.8 L (3.9-5) g/dL Urine WBC (Auto) (0.0-6.0) /HPF Assessment and Plan - Patient Problems (1) CVA (cerebral vascular accident) Current Visit: Yes Status: Acute Plan to address problem: Stroke Protocol: Admit to telemetry, CT head, MRI Brain, MRA Brain, Antiplatelet therapy, Lipid panel, statin therapy, Eccho, Carotid Doppler, PT/OT/Speech therapy, Neuro checks, Neurology consulted (2) Debility Current Visit: Yes Status: Acute Plan to address problem: PT consulted, (3) Dementia Current Visit: Yes Status: Acute Qualifiers: Dementia behavioral disturbance: without behavioral disturbance Plan to address problem: Supportive care, Pt family counseled regarding dementia progression. (4) UTI (urinary tract infection) Current Visit: Yes Status: Acute Qualifiers: Encounter type: initial encounter Plan to address problem: IV antibiotic therapy, CBC, Urinalysis, supportive care. (5) CHF (congestive heart failure) Current Visit: No Status: Acute Qualifiers: Heart failure type: systolic Heart failure chronicity: chronic Qualified Code(s): I50.22 - Chronic systolic (congestive) heart failure Plan to address problem: Strict I/O, daily weight, monitor uop q shift, diuresis, afterload reduction, supplemental oxygen, pulse oximetry (6) Diabetes Current Visit: Yes Status: Acute Plan to address problem: ADA diet, insulin, accu check, hypoglycemia protocol (7) DVT prophylaxis Current Visit: No Status: Acute Plan to address problem: SCD to BLE while in bed,
[2018-12-03] MEDS ORDERED: HumuLIN R ONE (15:13)
--- NOTE | 2018-12-03 17:00 | Vascular Lab Report ---
PROCEDURE: VL CAROTID DUPLEX BILAT TECHNIQUE: HISTORY: stroke COMPARISONS: FINDINGS: Real-time ultrasound of the cervical arterial vasculature was performed using grayscale and color Doppler images. On the right, peak systolic velocity in the common carotid artery was 68 cm/s. In the internal caroti d it was 105 cm/s and in the external carotid 75 cm/s. Peak systolic velocity in the vertebral artery was 91 cm/s and antegrade. The ratio of flow of the internal carotid to the common carotid was 1.55 which is within normal limits. There is plaque in the proximal internal carotid artery resulting in a short segment estimated 40% stenosis On the left, peak systolic velocity in the common carotid artery was 82 cm/s. In the internal carotid it was 48 cm/s in the external carotid 55 cm/s. Flow in the vertebral artery was antegrade at 60 cm/ s. Ratio of flow of the internal carotid to the common carotid was 0.58 which is within normal limits . IMPRESSION: No stenosis of greater than 50% is seen in the cervical arterial vasculature This document is electronically signed by Christian Hayes MD., Dec 03 2018 04:58:37 PM ET
[2018-12-03] MEDS ORDERED: D50W (25GM) Syringe IV PRN (21:19)
[2018-12-03] MEDS: HumuLIN R SUB-Q SCH (22:24)
[2018-12-04] MEDS ORDERED: COLACE PO PRN (05:55)
[2018-12-04] MEDS: HumuLIN R SUB-Q SCH ×4 (07:30→23:24)
[2018-12-04] MEDS ORDERED: ASPIRIN PO SCH (10:00)
[2018-12-04] MEDS: ROCEPHIN/NS 1 GM/50 ML 1 GM/50 ML BAG IV SCH (10:12)
[2018-12-04] MEDS: PLAVIX PO SCH (10:12)
[2018-12-04] MEDS: NORVASC PO SCH (10:13)
[2018-12-04] MEDS: LASIX PO SCH (10:13)
[2018-12-04] MEDS: PROTONIX PO SCH (10:13)
[2018-12-04] MEDS: BABY ASPIRIN PO SCH (10:13)
--- NOTE | 2018-12-04 11:51 | Progress Note ---
Assessment and Plan Assessment and plan: (1) CVA (cerebral vascular accident) Current Visit: Yes Status: Acute Plan to address problem: Stroke Protocol: Not a candidate for TPA , neuro workup in progress CT head, MRI Brain, MRA Brain, Antiplatelet therapy, Lipid panel, statin therapy, Eccho, Carotid Doppler, PT/OT/Speech therapy, Neuro checks, Neurology consulted (2) Debility Current Visit: Yes Status: Acute Plan to address problem: PT consulted, (3) Dementia Current Visit: Yes Status: Acute Qualifiers: Dementia behavioral disturbance: without behavioral disturbance Plan to address problem: Supportive care, Pt family counseled regarding dementia progression. (4) UTI (urinary tract infection) Current Visit: Yes Status: Acute Qualifiers: Encounter type: initial encounter Plan to address problem: IV antibiotic therapy, CBC, Urinalysis, supportive care. (5) CHF (congestive heart failure) Current Visit: No Status: Acute Qualifiers: Heart failure type: systolic Heart failure chronicity: chronic Qualified Code(s): I50.22 - Chronic systolic (congestive) heart failure Plan to address problem: Strict I/O, daily weight, monitor uop q shift, diuresis, afterload reduction, supplemental oxygen, pulse oximetry (6) Diabetes Current Visit: Yes Status: Acute Plan to address problem: ADA diet, insulin, accu check, hypoglycemia protocol (7) DVT prophylaxis Current Visit: No Status: Acute Plan to address problem: SCD to BLE while in bed, History Interval history: Patient seen and examined medical records reviewed Admitted for syncope and possible CVA Patient is not a candidate for TPA Neuro workup so far CT head without contrast; no acute intracranial abnormality, chronic ischemia MRI brain; no acute intracranial process, volume loss and chronic white matter changes, chronic infarct in the inferior right cerebellum, MRA brain; no large vessel occlusion no large vessel occlusion and distal left ICA Echo; EF 20-25%, negative contrast saline study, moderate LVH, carotid Doppler; less than 50% stenosis bilateral Hospitalist Physical - Constitutional Vitals: Temp Pulse Resp BP Pulse Ox 97.9 F 69 18 170/87 95 12/04/18 07:36 12/04/18 10:13 12/04/18 07:36 12/04/18 10:13 12/04/18 07:36 General appearance: Present: no acute distress, well-nourished - EENT Eyes: Present: PERRL, EOM intact - Neck Neck: Present: supple, normal ROM - Respiratory Respiratory effort: normal Respiratory: bilateral: diminished, negative: rales, rhonchi, wheezing - Cardiovascular Rhythm: regular Heart Sounds: Present: S1 & S2 - Extremities Extremities: no ischemia, No edema - Abdominal General gastrointestinal: soft, non-tender, non-distended, normal bowel sounds - Integumentary Integumentary: Present: clear, warm - Psychiatric Psychiatric: appropriate mood/affect, cooperative - Neurologic Neurologic: CNII-XII intact, moves all extremities Results - Labs CBC & Chem 7: 12/03/18 13:20 12/03/18 13:20 Labs: Laboratory Last Values WBC 7.2 K/mm3 (4.5-11.0) 12/03/18 13:20 RBC 4.19 M/mm3 (3.65-5.03) 12/03/18 13:20 Hgb 13.4 gm/dl (10.1-14.3) 12/03/18 13:20 Hct 38.2 % (30.3-42.9) 12/03/18 13:20 MCV 91 fl (79-97) 12/03/18 13:20 MCH 32 pg (28-32) 12/03/18 13:20 MCHC 35 % (30-34) H 12/03/18 13:20 RDW 13.3 % (13.2-15.2) 12/03/18 13:20 Plt Count 251 K/mm3 (140-440) 12/03/18 13:20 Lymph % (Auto) 31.2 % (13.4-35.0) 12/03/18 13:20 Cris[place] % (Auto) 7.2 % (0.0-7.3) 12/03/18 13:20 Eos % (Auto) 0.4 % (0.0-4.3) 12/03/18 13:20 Baso % (Auto) 0.8 % (0.0-1.8) 12/03/18 13:20 Lymph # 2.3 K/mm3 (1.2-5.4) 12/03/18 13:20 Crisp # 0.5 K/mm3 (0.0-0.8) 12/03/18 13:20 Eos # 0.0 K/mm3 (0.0-0.4) 12/03/18 13:20 Baso # 0.1 K/mm3 (0.0-0.1) 12/03/18 13:20 Seg Neutrophils % 60.4 % (40.0-70.0) 12/03/18 13:20 Seg Neutrophils # 4.4 K/mm3 (1.8-7.7) 12/03/18 13:20 PT 14.1 Sec. (12.2-14.9) 12/03/18 13:20 INR 1.03 (0.87-1.13) 12/03/18 13:20 APTT 27.2 Sec. (24.2-36.6) 12/03/18 13:20 Sodium 134 mmol/L (137-145) L 12/03/18 13:20 Potassium 3.7 mmol/L (3.6-5.0) 12/03/18 13:20 Chloride 94.2 mmol/L (98-107) L 12/03/18 13:20 Carbon Dioxide 26 mmol/L (22-30) 12/03/18 13:20 18 mmol/L 12/03/18 13:20 BUN 17 mg/dL (7-17) 12/03/18 13:20 0.7 mg/dL (0.7-1.2) 12/03/18 13:20 Estimated GFR > 60 ml/min 12/03/18 13:20 24 % 12/03/18 13:20 Glucose 427 mg/dL (65-100) H 12/03/18 13:20 POC Glucose 144 (70-105) H 12/04/18 07:39 Calcium 9.4 mg/dL (8.4-10.2) 12/03/18 13:20 0.50 mg/dL (0.1-1.2) 12/03/18 13:20 AST 13 units/L (5-40) 12/03/18 13:20 ALT 14 units/L (7-56) 12/03/18 13:20 95 units/L (35-129) 12/03/18 13:20 27 units/L (30-135) L 12/03/18 13:20 CK-MB (CK-2) 1.1 ng/mL (0.0-4.0) 12/03/18 13:20 CK-MB (CK-2) Rel Index 4.0 (0-4) 12/03/18 13:20 < 0.010 ng/mL (0.00-0.029) 12/03/18 13:20 7.1 g/dL (6.3-8.2) 12/03/18 13:20 3.8 g/dL (3.9-5) L 12/03/18 13:20 1.2 % 12/03/18 13:20 Yellow (Yellow) 12/03/18 12:50 Slightly-cloudy (Clear) 12/03/18 12:50 5.0 (5.0-7.0) 12/03/18 12:50 Ur Specific [place] 1.030 (1.003-1.030) 12/03/18 12:50 100 mg/dl mg/dL (Negative) 12/03/18 12:50 >=500 mg/dL (Negative) 12/03/18 12:50 Neg mg/dL (Negative) 12/03/18 12:50 Neg (Negative) 12/03/18 12:50 Neg (Negative) 12/03/18 12:50 Neg (Negative) 12/03/18 12:50 < 2.0 mg/dL (<2.0) 12/03/18 12:50 Ur Leukocyte Esterase Sm (Negative) 12/03/18 12:50 33.0 /HPF (0.0-6.0) H 12/03/18 12:50 4.0 /HPF (0.0-6.0) 12/03/18 12:50 U Epithel Cells (Auto) 9.0 /HPF (0-13.0) 12/03/18 12:50 1+ /HPF (Negative) 12/03/18 12:50 Hyaline Casts 1 /LPF 12/03/18 12:50 Few /HPF 12/03/18 12:50 Blood Type O POSITIVE 12/03/18 13:20 Antibody Screen Negative 12/03/18 13:20 Active Medications - Current Medications Current Medications: Generic Name Dose Route Start Last Admin Trade Name Freq PRN Reason Stop Dose Admin Acetaminophen 650 mg 12/03/18 14:29 Tylenol PO Q4H PRN Pain, Mild (1-3) Amlodipine Besylate 5 mg 12/04/18 10:00 12/04/18 10:13 Norvasc PO 5 mg DAILY [facility] Administration Aspirin 81 mg 12/04/18 10:00 12/04/18 10:13 Baby Aspirin PO 81 mg DAILY [facility] Administration Atorvastatin Calcium 40 mg 12/03/18 22:00 12/03/18 21:26 Lipitor PO 40 mg QHS [facility] Administration Bisacodyl 10 mg 12/03/18 14:29 Dulcolax [place] QDAY PRN Constipation Clopidogrel Bisulfate 75 mg 12/04/18 10:00 12/04/18 10:12 Plavix PO 75 mg DAILY [facility] Administration Dextrose 50 ml 12/03/18 21:19 D50w (25gm) Syringe IV PRN PRN Hypoglycemia Docusate Sodium 100 mg 12/04/18 05:55 Colace PO BID PRN Constipation Furosemide 20 mg 12/04/18 10:00 12/04/18 10:13 Lasix PO 20 mg DAILY [facility] Administration Ceftriaxone Sodium 1 gm in 50 mls @ 100 mls/hr 12/04/18 10:00 12/04/18 10:12 Rocephin/Ns 1 Gm/50 Ml IV 100 mls/hr Q24HR [facility] Administration Protocol Insulin Human Regular 0 units 12/03/18 22:00 12/04/18 07:30 Humulin R SUB-Q Not Given ACHS [facility] Protocol Latanoprost 1 drops 12/04/18 22:00 Latanoprost 0.005% OU QHS [facility] Magnesium Hydroxide 30 ml 12/03/18 14:29 Milk Of Magnesia PO Q4H PRN Constipation Metoclopramide HCl 10 mg 12/03/18 14:29 Reglan PO Q6H PRN Nausea And Vomiting Ondansetron HCl 4 mg 12/03/18 14:29 Zofran IV Q8H PRN Nausea And Vomiting Pantoprazole Sodium 40 mg 12/04/18 10:00 12/04/18 10:13 Protonix PO 40 mg DAILY [facility] Administration Promethazine HCl 25 mg 12/03/18 14:29 Phenergan [place] Q6H PRN Nausea And Vomiting Sodium Chloride 10 ml 12/03/18 14:29 12/04/18 10:17 Sodium Chloride Flush Syringe 10 Ml IV 10 ml PRN PRN Administration LINE FLUSH
--- NOTE | 2018-12-04 14:37 | Magnetic Resonance Report ---
MRI OF THE BRAIN WITHOUT CONTRAST: HISTORY: Stroke PROCEDURE: Multiplanar, multisequence MR imaging of the brain without IV contrast was performed. FINDINGS: Moderate volume loss and mild nonspecific chronic white matter changes are identified. Chronic infarct in the inferior right cerebellum measures up to 2 cm in greatest dimension. The remaining brain parenchyma is within normal limits. No evidence for acute ischemia, hemorrhage or mass. No extra-axial fluid collection. The midline structures are central. The basal cisterns are patent. Normal ventricular size. The orbital cavities and sella turcica demonstrate no abnormality. The visualized paranasal sinuses and mastoid air cells are well aerated. IMPRESSION: No acute intracranial process. Volume loss. Chronic white matter changes. Chronic infarct in the inferior right cerebellum.
--- NOTE | 2018-12-04 14:39 | Magnetic Resonance Report ---
MRA HEAD WITHOUT CONTRAST HISTORY: Stroke. [id number] imaging with MIP reformations of the resighini of [place] is submitted. The arteries of the anterior and posterior circulations are patent. No large vessel occlusion or aneurysm is identified. There is moderate irregularity of the supraclinoid left ICA consistent with moderate atherosclerotic disease. The left A1 segment is aplastic. There is filling of the left A2 segment via a patent anterior communicating artery. The left vertebral artery is dominant. IMPRESSION: No large vessel occlusion is identified. Moderate atherosclerotic disease is suspected in the distal left ICA.
[2018-12-04] MEDS: LATANOPROST 0.005% OU SCH (23:24)
[2018-12-04] MEDS: GLUCOTROL PO SCH (23:25)
[2018-12-05 08:22] LABS: Chol/HDL Ratio 3.49 %
[2018-12-05] MEDS: HumuLIN R SUB-Q SCH ×4 (09:29→22:57)
[2018-12-05] MEDS: BABY ASPIRIN PO SCH (09:58)
[2018-12-05] MEDS: GLUCOTROL PO SCH ×2 (09:58→18:30)
[2018-12-05] MEDS: LASIX PO SCH (09:58)
[2018-12-05] MEDS: NORVASC PO SCH (09:58)
[2018-12-05] MEDS: ROCEPHIN/NS 1 GM/50 ML 1 GM/50 ML BAG IV SCH (09:58)
[2018-12-05] MEDS: PLAVIX PO SCH (09:58)
[2018-12-05] MEDS: PROTONIX PO SCH (09:58)
--- NOTE | 2018-12-05 19:46 | Progress Note ---
Assessment and Plan Assessment and plan: Neuro workup so far CT head without contrast; no acute intracranial abnormality, chronic ischemia MRI brain; no acute intracranial process, volume loss and chronic white matter changes, chronic infarct in the inferior right cerebellum, MRA brain; no large vessel occlusion no large vessel occlusion and distal left ICA Echo; EF 20-25%, negative contrast saline study, moderate LVH, carotid Doppler; less than 50% stenosis bilateral (1) CVA (cerebral vascular accident) Current Visit: Yes Status: Acute Plan to address problem: Stroke Protocol: Not a candidate for TPA , neuro workup in progress CT head, MRI Brain, MRA Brain, Antiplatelet therapy, Lipid panel, statin therapy, Eccho, Carotid Doppler, PT/OT/Speech therapy, Neuro checks, Neurology consulted (2) Debility Current Visit: Yes Status: Acute Plan to address problem: PT consulted, (3) Dementia Current Visit: Yes Status: Acute Qualifiers: Dementia behavioral disturbance: without behavioral disturbance Plan to address problem: Supportive care, Pt family counseled regarding dementia progression. (4) UTI (urinary tract infection) Current Visit: Yes Status: Acute Qualifiers: Encounter type: initial encounter Plan to address problem: IV antibiotic therapy, CBC, Urinalysis, supportive care. (5) CHF (congestive heart failure) Current Visit: No Status: Acute Qualifiers: Heart failure type: systolic Heart failure chronicity: chronic Qualified Code(s): I50.22 - Chronic systolic (congestive) heart failure Plan to address problem: Strict I/O, daily weight, monitor uop q shift, diuresis, afterload reduction, supplemental oxygen, pulse oximetry (6) Diabetes Current Visit: Yes Status: Acute Plan to address problem: ADA diet, insulin, accu check, hypoglycemia protocol (7) DVT prophylaxis Current Visit: No Status: Acute Plan to address problem: SCD to BLE while in bed, History Interval history: Patient seen and examined medical records reviewed Patient feels better no new complaints Physical therapy has evaluated the patient and recommended home PT at discharge Vital signs noted Hospitalist Physical - Constitutional Vitals: Temp Pulse Resp BP Pulse Ox 98.2 F 81 18 164/73 97 12/05/18 19:33 12/05/18 19:32 12/05/18 19:32 12/05/18 19:32 12/05/18 19:32 General appearance: Present: no acute distress, well-nourished - EENT Eyes: Present: PERRL, EOM intact - Neck Neck: Present: supple, normal ROM - Respiratory Respiratory effort: normal Respiratory: bilateral: diminished, negative: rales, rhonchi, wheezing - Cardiovascular Rhythm: regular Heart Sounds: Present: S1 & S2 - Extremities Extremities: no ischemia, No edema - Abdominal General gastrointestinal: soft, non-tender, non-distended, normal bowel sounds - Integumentary Integumentary: Present: clear, warm - Psychiatric Psychiatric: appropriate mood/affect, cooperative - Neurologic Neurologic: CNII-XII intact, moves all extremities Results - Labs CBC & Chem 7: 12/03/18 13:20 12/03/18 13:20 Labs: Laboratory Last Values WBC 7.2 K/mm3 (4.5-11.0) 12/03/18 13:20 RBC 4.19 M/mm3 (3.65-5.03) 12/03/18 13:20 Hgb 13.4 gm/dl (10.1-14.3) 12/03/18 13:20 Hct 38.2 % (30.3-42.9) 12/03/18 13:20 MCV 91 fl (79-97) 12/03/18 13:20 MCH 32 pg (28-32) 12/03/18 13:20 MCHC 35 % (30-34) H 12/03/18 13:20 RDW 13.3 % (13.2-15.2) 12/03/18 13:20 Plt Count 251 K/mm3 (140-440) 12/03/18 13:20 Lymph % (Auto) 31.2 % (13.4-35.0) 12/03/18 13:20 [place] % (Auto) 7.2 % (0.0-7.3) 12/03/18 13:20 Eos % (Auto) 0.4 % (0.0-4.3) 12/03/18 13:20 Baso % (Auto) 0.8 % (0.0-1.8) 12/03/18 13:20 Lymph # 2.3 K/mm3 (1.2-5.4) 12/03/18 13:20 [place] # 0.5 K/mm3 (0.0-0.8) 12/03/18 13:20 Eos # 0.0 K/mm3 (0.0-0.4) 12/03/18 13:20 Baso # 0.1 K/mm3 (0.0-0.1) 12/03/18 13:20 Seg Neutrophils % 60.4 % (40.0-70.0) 12/03/18 13:20 Seg Neutrophils # 4.4 K/mm3 (1.8-7.7) 12/03/18 13:20 PT 14.1 Sec. (12.2-14.9) 12/03/18 13:20 INR 1.03 (0.87-1.13) 12/03/18 13:20 APTT 27.2 Sec. (24.2-36.6) 12/03/18 13:20 Sodium 134 mmol/L (137-145) L 12/03/18 13:20 Potassium 3.7 mmol/L (3.6-5.0) 12/03/18 13:20 Chloride 94.2 mmol/L (98-107) L 12/03/18 13:20 Carbon Dioxide 26 mmol/L (22-30) 12/03/18 13:20 18 mmol/L 12/03/18 13:20 BUN 17 mg/dL (7-17) 12/03/18 13:20 0.7 mg/dL (0.7-1.2) 12/03/18 13:20 Estimated GFR > 60 ml/min 12/03/18 13:20 24 % 12/03/18 13:20 Glucose 427 mg/dL (65-100) H 12/03/18 13:20 POC Glucose 284 (70-105) H 12/05/18 16:10 Calcium 9.4 mg/dL (8.4-10.2) 12/03/18 13:20 0.50 mg/dL (0.1-1.2) 12/03/18 13:20 AST 13 units/L (5-40) 12/03/18 13:20 ALT 14 units/L (7-56) 12/03/18 13:20 95 units/L (35-129) 12/03/18 13:20 27 units/L (30-135) L 12/03/18 13:20 CK-MB (CK-2) 1.1 ng/mL (0.0-4.0) 12/03/18 13:20 CK-MB (CK-2) Rel Index 4.0 (0-4) 12/03/18 13:20 < 0.010 ng/mL (0.00-0.029) 12/03/18 13:20 7.1 g/dL (6.3-8.2) 12/03/18 13:20 3.8 g/dL (3.9-5) L 12/03/18 13:20 1.2 % 12/03/18 13:20 Triglycerides 104 mg/dL (2-149) 12/05/18 07:03 Cholesterol 213 mg/dL (50-199) H 12/05/18 07:03 152 mg/dL (50-130) H 12/05/18 07:03 61 mg/dL (40-59) H 12/05/18 07:03 3.49 % 12/05/18 07:03 Yellow (Yellow) 12/03/18 12:50 Slightly-cloudy (Clear) 12/03/18 12:50 5.0 (5.0-7.0) 12/03/18 12:50 Ur Specific [place] 1.030 (1.003-1.030) 12/03/18 12:50 100 mg/dl mg/dL (Negative) 12/03/18 12:50 >=500 mg/dL (Negative) 12/03/18 12:50 Neg mg/dL (Negative) 12/03/18 12:50 Neg (Negative) 12/03/18 12:50 Neg (Negative) 12/03/18 12:50 Neg (Negative) 12/03/18 12:50 < 2.0 mg/dL (<2.0) 12/03/18 12:50 Ur Leukocyte Esterase Sm (Negative) 12/03/18 12:50 33.0 /HPF (0.0-6.0) H 12/03/18 12:50 4.0 /HPF (0.0-6.0) 12/03/18 12:50 U Epithel Cells (Auto) 9.0 /HPF (0-13.0) 12/03/18 12:50 1+ /HPF (Negative) 12/03/18 12:50 Hyaline Casts 1 /LPF 12/03/18 12:50 Few /HPF 12/03/18 12:50 Blood Type O POSITIVE 12/03/18 13:20 Antibody Screen Negative 12/03/18 13:20 Active Medications - Current Medications Current Medications: Generic Name Dose Route Start Last Admin Trade Name Freq PRN Reason Stop Dose Admin Acetaminophen 650 mg 12/03/18 14:29 Tylenol PO Q4H PRN Pain, Mild (1-3) Amlodipine Besylate 5 mg 12/04/18 10:00 12/05/18 09:58 Norvasc PO 5 mg DAILY [facility] Administration Aspirin 81 mg 12/04/18 10:00 12/05/18 09:58 Baby Aspirin PO 81 mg DAILY [facility] Administration Atorvastatin Calcium 40 mg 12/03/18 22:00 12/04/18 23:25 Lipitor PO 40 mg QHS [facility] Administration Bisacodyl 10 mg 12/03/18 14:29 Dulcolax [place] QDAY PRN Constipation Clopidogrel Bisulfate 75 mg 12/04/18 10:00 12/05/18 09:58 Plavix PO 75 mg DAILY [facility] Administration Dextrose 50 ml 12/03/18 21:19 D50w (25gm) Syringe IV PRN PRN Hypoglycemia Docusate Sodium 100 mg 12/04/18 05:55 Colace PO BID PRN Constipation Furosemide 20 mg 12/04/18 10:00 12/05/18 09:58 Lasix PO 20 mg DAILY [facility] Administration Glipizide 5 mg 12/04/18 22:00 12/05/18 18:30 Glucotrol PO 5 mg BIDDIAB [facility] Administration Ceftriaxone Sodium 1 gm in 50 mls @ 100 mls/hr 12/04/18 10:00 12/05/18 09:58 Rocephin/Ns 1 Gm/50 Ml IV 100 mls/hr Q24HR [facility] Administration Protocol Insulin Human Regular 0 units 12/03/18 22:00 12/05/18 18:31 Humulin R SUB-Q 4 units ACHS [facility] Administration Protocol Latanoprost 1 drops 12/04/18 22:00 12/04/18 23:24 Latanoprost 0.005% OU 1 drops QHS [facility] Administration Magnesium Hydroxide 30 ml 12/03/18 14:29 Milk Of Magnesia PO Q4H PRN Constipation Metoclopramide HCl 10 mg 12/03/18 14:29 Reglan PO Q6H PRN Nausea And Vomiting Ondansetron HCl 4 mg 12/03/18 14:29 Zofran IV Q8H PRN Nausea And Vomiting Pantoprazole Sodium 40 mg 12/04/18 10:00 12/05/18 09:58 Protonix PO 40 mg DAILY [facility] Administration Promethazine HCl 25 mg 12/03/18 14:29 Phenergan [place] Q6H PRN Nausea And Vomiting Sodium Chloride 10 ml 12/03/18 14:29 12/04/18 10:17 Sodium Chloride Flush Syringe 10 Ml IV 10 ml PRN PRN Administration LINE FLUSH
[2018-12-05] MEDS: APRESOLINE PO SCH (22:55)
[2018-12-05] MEDS: LATANOPROST 0.005% OU SCH (22:56)
[2018-12-06] MEDS: APRESOLINE PO SCH ×2 (05:59→14:02)
[2018-12-06] MEDS: PLAVIX PO SCH (09:27)
[2018-12-06] MEDS: NORVASC PO SCH (09:28)
[2018-12-06] MEDS: PROTONIX PO SCH (09:28)
[2018-12-06] MEDS: LASIX PO SCH (09:28)
[2018-12-06] MEDS: BABY ASPIRIN PO SCH (09:28)
[2018-12-06] MEDS: GLUCOTROL PO SCH (09:28)
[2018-12-06] MEDS: HumuLIN R SUB-Q SCH ×2 (09:49→14:01)
[2018-12-06] MEDS: ROCEPHIN/NS 1 GM/50 ML 1 GM/50 ML BAG IV SCH (11:00)
[2018-12-06 12:38] VITALS: BP 159/76
--- NOTE | 2018-12-06 13:21 | Discharge Summary ---
Providers - Providers Date of Admission: 12/03/18 14:29 Date of discharge: 12/06/18 Attending physician: ROSEANNE HOYT 12/03/18 14:29 Occupational Therapy Evaluate and Treat [CONS] Routine Comment: Reason For Exam: Neuro deficits Physical Therapy Evaluation and Treat [CONS] Routine Comment: Reason For Exam: Neuro deficits 12/03/18 14:31 Speech Therapy Evaluation and Treat [CONS] Routine Reason For Exam: swallow eval Primary care physician: [employer]NAGER Hospitalization Condition: Fair Hospital course: Neuro workup so far CT head without contrast; no acute intracranial abnormality, chronic ischemia MRI brain; no acute intracranial process, volume loss and chronic white matter changes, chronic infarct in the inferior right cerebellum, MRA brain; no large vessel occlusion no large vessel occlusion and distal left ICA Echo; EF 20-25%, negative contrast saline study, moderate LVH, carotid Doppler; less than 50% stenosis bilateral -- CVA (cerebral vascular accident)/TIA Current Visit: Yes Status: Acute Plan to address problem: Stroke Protocol: Not a candidate for TPA , neuro workup in progress CT head, MRI Brain, MRA Brain, Antiplatelet therapy, Lipid panel, statin therapy, Eccho, Carotid Doppler, PT/OT/Speech therapy, Neuro checks, Neurology consulted (2) Debility Current Visit: Yes Status: Acute Plan to address problem: PT consulted, (3) Dementia Current Visit: Yes Status: Acute Qualifiers: Dementia behavioral disturbance: without behavioral disturbance Plan to address problem: Supportive care, Pt family counseled regarding dementia progression. (4) UTI (urinary tract infection) Current Visit: Yes Status: Acute Qualifiers: Encounter type: initial encounter Plan to address problem: IV antibiotic therapy, CBC, Urinalysis, supportive care. (5) CHF (congestive heart failure) Current Visit: No Status: Acute Qualifiers: Heart failure type: systolic Heart failure chronicity: chronic Qualified Code(s): I50.22 - Chronic systolic (congestive) heart failure Plan to address problem: Strict I/O, daily weight, monitor uop q shift, diuresis, afterload reduction, supplemental oxygen, pulse oximetry (6) Diabetes Current Visit: Yes Status: Acute Plan to address problem: ADA diet, insulin, accu check, hypoglycemia protocol (7) DVT prophylaxis Current Visit: No Status: Acute Plan to address problem: SCD to BLE while in bed, Disposition: [id number] HOME UNDER HOME HL[facility] Time spent for discharge: 32 min Core Measure Documentation - Palliative Care Palliative Care/ Comfort Measures: Not Applicable - Core Measures Any of the following diagnoses?: none Exam - Constitutional Vitals: Temp Pulse Resp BP Pulse Ox 97.5 F L 84 18 159/76 96 12/06/18 09:37 12/06/18 12:36 12/06/18 09:37 12/06/18 12:36 12/06/18 12:36 General appearance: Present: no acute distress, well-nourished - EENT Eyes: Present: PERRL, EOM intact - Neck Neck: Present: supple, normal ROM - Respiratory Respiratory effort: normal Respiratory: bilateral: diminished, negative: rales, rhonchi, wheezing - Cardiovascular Rhythm: regular Heart Sounds: Present: S1 & S2 - Extremities Extremities: no ischemia, No edema - Abdominal General gastrointestinal: Present: soft, non-tender, non-distended, normal bowel sounds - Integumentary Integumentary: Present: clear, warm - Musculoskeletal Musculoskeletal: strength equal bilaterally, generalized weakness - Psychiatric Psychiatric: appropriate mood/affect, cooperative - Neurologic Neurologic: moves all extremities Plan Activity: advance as tolerated, fall precautions Diet: diabetic Special Instructions: physical therapy Additional Instructions: Fall precautions Follow up with: PRIMARY CARE, [Primary Care Provider] - 3-5 Days CARLOS LOUIS MD [Staff Physician] - 7 Days Prescriptions: hydrALAZINE [Apresoline TAB] 25 mg PO Q8HR #90 tablet AtorvaSTATin [Lipitor] 40 mg PO QHS #30 tablet
--- NOTE | 2018-12-06 13:35 | Discharge Summary ---
Providers - Providers Date of Admission: 12/03/18 14:29 Date of discharge: 12/06/18 Attending physician: ROSEANNE HOYT 12/03/18 14:29 Occupational Therapy Evaluate and Treat [CONS] Routine Comment: Reason For Exam: Neuro deficits Physical Therapy Evaluation and Treat [CONS] Routine Comment: Reason For Exam: Neuro deficits 12/03/18 14:31 Speech Therapy Evaluation and Treat [CONS] Routine Reason For Exam: swallow eval Primary care physician: [employer]NALYST Hospitalization Reason for admission: Slurred speech and confusion Condition: Stable Pertinent studies: Neuro workup so far CT head without contrast; no acute intracranial abnormality, chronic ischemia MRI brain; no acute intracranial process, volume loss and chronic white matter changes, chronic infarct in the inferior right cerebellum, MRA brain; no large vessel occlusion no large vessel occlusion and distal left ICA Echo; EF 20-25%, negative contrast saline study, moderate LVH, carotid Doppler; less than 50% stenosis bilateral Hospital course: 83 YO Female with Systolic CHF (EF 35%), CVA, Debility, Dementia, HTN, HLD, DM, GERD, Vertigo presents to ED for evaluation. Pt is confused/lethargic and unable to provide history. Pt history provided by daughter, who is at bedside during exam and interview. As per daughter, the patient has experienced recurrent episodes of slurred speech, confusion, and loss of consciousness over the past 2 weeks with the most recent episode occurring upon waking from sleep this morning around 0930 hrs. Pt seen and evaluated in ED and found to haveneuro symptoms possible CVA. Code stroke was called. Pt is outside therapeutic window for TPA PT also found to have UTI.received emperic antibiotics.Cultures negative Patient was admitted,evaluated by Neurologist.Had extensive neuro w/u MRI neg for acute stroke,Acute CVA ruled out.Patient had TIA,managed with aspirin and statin Today patient is comfortable,no new complaints, Hemodynamically and clinically stable at discharge. Discharge Diagnosis: --Possible Acute CVA: Neuro workup negative.CVA ruled out cont Aspirin,statin --TIA : aspirin and statin --Gen debility:PT,OT --Dementia: Supportive care, --UTI : emperic IV antibiotic therapy, urine cultures negative --Chronic systolic CHF: EF20-25% antifailure medicatios,low sodium diet --Type 2 DM; Accu checks,SSC and ADA diet, insulin, accu check, hypoglycemia protocol --DVT prophylaxis:SCD Disposition: DC/TX-06 HOME UNDER HOME [facility] Time spent for discharge: 32 min Core Measure Documentation - Palliative Care Palliative Care/ Comfort Measures: Not Applicable - Core Measures Any of the following diagnoses?: heart failure, none - Heart Failure Discharge Requirements SURJIT/ARB for LVSD if EF <40%: Yes Beta chayo at discharge: Yes Exam - Constitutional Vitals: Temp Pulse Resp BP Pulse Ox 97.5 F L 84 18 159/76 96 12/06/18 09:37 12/06/18 12:36 12/06/18 09:37 12/06/18 12:36 12/06/18 12:36 General appearance: Present: no acute distress, well-nourished - EENT Eyes: Present: PERRL, EOM intact - Neck Neck: Present: supple, normal ROM - Respiratory Respiratory effort: normal Respiratory: bilateral: diminished, negative: rales, rhonchi, wheezing - Cardiovascular Rhythm: regular Heart Sounds: Present: S1 & S2 - Extremities Extremities: no ischemia, No edema - Abdominal General gastrointestinal: Present: soft, non-tender, non-distended, normal bowel sounds - Integumentary Integumentary: Present: clear, warm - Musculoskeletal Musculoskeletal: strength equal bilaterally - Psychiatric Psychiatric: appropriate mood/affect, cooperative - Neurologic Neurologic: moves all extremities Plan Activity: advance as tolerated, fall precautions Diet: diabetic Special Instructions: physical therapy Durable Medical Equipment Needed Upon Discharge: Walker-Rolling Additional Instructions: Fall precautions. Advised to take 70/30 insulin 12 units twice a day. And increase as needed Follow up with: PRIMARY CAREMD [Primary Care Provider] - 3-5 Days CARLOS LOUIS MD [Staff Physician] - 7 Days Prescriptions: AtorvaSTATin [Lipitor] 40 mg PO QHS #60 tab
== END 2018-12-06 19:00 | disposition home health service (06) | DRG 65 ==
LOC: ED 10:52 → 4A 14:29
PROVIDERS: ADMIT Internal Medicine; ATTEND Internal Medicine
DX: I63.9 Cerebral infarction, unspecified (principal); I50.22 Chronic systolic (congestive) heart failure; N39.0 Urinary tract infection, site not specified; I42.9 Cardiomyopathy, unspecified; F03.90 Unspecified dementia, unspecified severity, without behavioral disturbance, psychotic disturbance, mood disturbance, and anxiety; R47.81 Slurred speech; K21.9 Gastro-esophageal reflux disease without esophagitis; I11.0 Hypertensive heart disease with heart failure; E11.9 Type 2 diabetes mellitus without complications; Z98.51 Tubal ligation status; Z94.7 Corneal transplant status; Z82.49 Family history of ischemic heart disease and other diseases of the circulatory system; Z83.3 Family history of diabetes mellitus; Z88.1 Allergy status to other antibiotic agents; Z79.899 Other long term (current) drug therapy; Z79.82 Long term (current) use of aspirin; I25.2 Old myocardial infarction
CPT/HCPCS: 36415; 70450; 70544; 70551; 80053; 80061; 81001; 82550; 82553; 82962; 84484; 85025; 85610; 85730; 86850; 86900; 86901; 87086; 93005; 93010; 93306; 93880; 96374; G0378; A9270-GY; J0696; J1815

== ENCOUNTER 2019-05-30 11:38 | Inpatient (IN) | payer MEDICARE ==
--- NOTE | 2019-05-30 11:55 | Emergency Department Report ---
Blank Doc - Documentation Documentation: 83-year-old female that presents with CP and SOB. This initial assessment/diagnostic orders/clinical plan/treatment(s) is/are subject to change based on patient's health status, clinical progression and re- assessment by fellow clinical providers in the ED. Further treatment and workup at subsequent clinical providers discretion. Patient/guardians urged not to elope from the ED as their condition may be serious if not clinically assessed and managed. Initial orders include: 1- Patient sent to [facility] for further evaluation and treatment 2- EKG 3- CXR 4- labs
[2019-05-30 12:21] LABS: Basophils # (Auto) 0.1 K/mm3 (0.0-0.1); Basophils % (Auto) 0.8 % (0.0-1.8); Eosinophils # (Auto) 0.1 K/mm3 (0.0-0.4); Eosinophils % (Auto) 0.9 % (0.0-4.3); Hematocrit 40.6 % (30.3-42.9); Hemoglobin 13.4 gm/dl (10.1-14.3); Lymphocytes % (Auto) 28.5 % (13.4-35.0); Mean Corpuscular HGB Conc 33 % (30-34); Mean Corpuscular Volume 94 fl (79-97); Monocytes # (Auto) 0.7 K/mm3 (0.0-0.8); Monocytes % (Auto) 9.3 % (0.0-7.3); Platelet Count 271 K/mm3 (140-440); Red Blood Count 4.32 M/mm3 (3.65-5.03); Red Cell Distribution Width 13.7 % (13.2-15.2)
[2019-05-30] MEDS ORDERED: FUROSEMIDE 20 MG/2 ML INJ IV ONE (12:21)
--- NOTE | 2019-05-30 12:22 | Emergency Department Report ---
ED Shortness of Breath HPI - General Chief Complaint: Chest Pain Stated Complaint: CHEST PAIN/MARCELA Time Seen by Provider: 05/30/19 11:55 Source: patient, family Mode of arrival: Wheelchair Limitations: No Limitations - History of Present Illness Initial Comments: 83 yo AA female comes to ER with cough, chest pain and sob. Pt endorses swelling of her legs; darlin right. Denies fever; endorses chills. No abd pain. Pt is on home oxygen 2L. She reports coughing so hard that she gags. Pt has not seen pcp for these complaints. She saw her heart doctor "a few weeks ago" [facility] CHF CVA 2017 HTN DM GERD EF 25% 12/02 MD Complaint: shortness of breath, cough, chest pain -: Gradual, days(s) Consistency: constant Improves With: nothing Worsens With: lying flat, exertion, coughing Known History Of: COPD, congestive heart failure, diabetes Associated Symptoms: chest pain, cough Treatments Prior to Arrival: oxygen - Related Data Home Oxygen Therapy: Yes Home Oxygen Amount: 2 Liters Home Medications Medication Instructions Recorded Confirmed Last Taken Losartan/Hydrochlorothiazide 1 each PO DAILY 02/20/14 12/03/18 12/09/17 23:00 [Hyzaar 100-25 TAB] Amlodipine Besylate [Norvasc] 5 mg PO DAILY 12/10/17 12/03/18 12/09/17 23:00 Bimatoprost 0.01%(Nf) [Lumigan 1 drop OU BID 12/10/17 12/03/18 Unknown 0.01%(Nf)] Carvedilol [Coreg] 25 mg PO BID 12/10/17 12/03/18 Unknown Clopidogrel [Plavix] 75 mg PO DAILY 12/10/17 12/03/18 Unknown Furosemide [Lasix] 20 mg PO DAILY 12/10/17 12/03/18 Unknown Pantoprazole [Protonix TAB] 40 mg PO DAILY 12/10/17 12/03/18 Unknown glipiZIDE [Glipizide] 5 mg PO BID 12/10/17 12/03/18 Unknown Aspirin [Aspirin BABY CHEW TAB] 81 mg PO DAILY 03/12/18 12/03/18 Unknown Docusate Sodium [Colace CAP] 100 mg PO BID PRN 12/03/18 12/03/18 Unknown Insulin Lispro Protamin/Lispro 24 units SQ BID 12/03/18 12/03/18 Unknown [HumaLOG Mix 75-25 Kwikpen] Previous Rx's Medication Instructions Recorded Last Taken Type AtorvaSTATin [Lipitor] 40 mg PO QHS #60 tab 12/07/18 Unknown Rx Allergies Allergy/AdvReac Type Severity Reaction Status Date / Time levofloxacin [From Levaquin] Allergy Intermediate Itching Verified 10/26/18 12:05 ED Review of Systems ROS: Stated complaint: CHEST PAIN/MARCELA Other details as noted in HPI Comment: All other systems reviewed and negative ED Past Medical Hx - Past Medical History Hx Hypertension: Yes Hx CVA: Yes (2017) Hx Heart Attack/AMI: Yes (2005) Hx Congestive Heart Failure: Yes Hx Diabetes: Yes Hx Deep Vein Thrombosis: No Hx Pulmonary Embolism: No Hx GERD: Yes Hx Liver Disease: No Hx Renal Disease: No Hx of Cancer: No Hx Sickle Cell Disease: No Hx Arthritis: Yes Hx Headaches / Migraines: No Hx Seizures: No Hx Kidney Stones: No Hx Psychiatric Treatment: No Hx Asthma: No Hx COPD: Yes Hx Tuberculosis: No Hx Dementia: No Hx HIV: No 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 known LBBB - Surgical History Past Surgical History?: Yes Additional Surgical History: tubal ligation. b/l corneal transplant - Family History Family history: no significant - Social History Smoking Status: Never Smoker Substance Use Type: None - Medications Home Medications: Home Medications Medication Instructions Recorded Confirmed Last Taken Type Losartan/Hydrochlorothiazide 1 each PO DAILY 02/20/14 12/03/18 12/09/17 23:00 History [Hyzaar 100-25 TAB] Amlodipine Besylate [Norvasc] 5 mg PO DAILY 12/10/17 12/03/18 12/09/17 23:00 History Bimatoprost 0.01%(Nf) [Lumigan 1 drop OU BID 12/10/17 12/03/18 Unknown History 0.01%(Nf)] Carvedilol [Coreg] 25 mg PO BID 12/10/17 12/03/18 Unknown History Clopidogrel [Plavix] 75 mg PO DAILY 12/10/17 12/03/18 Unknown History Furosemide [Lasix] 20 mg PO DAILY 12/10/17 12/03/18 Unknown History Pantoprazole [Protonix TAB] 40 mg PO DAILY 12/10/17 12/03/18 Unknown History glipiZIDE [Glipizide] 5 mg PO BID 12/10/17 12/03/18 Unknown History Aspirin [Aspirin BABY CHEW TAB] 81 mg PO DAILY 03/12/18 12/03/18 Unknown History Docusate Sodium [Colace CAP] 100 mg PO BID PRN 12/03/18 12/03/18 Unknown History Insulin Lispro Protamin/Lispro 24 units SQ BID 12/03/18 12/03/18 Unknown History [HumaLOG Mix 75-25 Kwikpen] AtorvaSTATin [Lipitor] 40 mg PO QHS #60 tab 12/07/18 Unknown Rx ED Physical Exam - General Limitations: No Limitations General appearance: alert, anxious - Head Head exam: Present: atraumatic, normocephalic - Eye Eye exam: Present: other (cataracts b) - ENT ENT exam: Present: mucous membranes moist - Neck Neck exam: Present: normal inspection, other (jvd) - Respiratory Respiratory exam: Present: normal lung sounds bilaterally, wheezes, rales. Absent: respiratory distress - Cardiovascular Cardiovascular Exam: Present: regular rate, normal rhythm. Absent: systolic murmur, diastolic murmur, rubs, gallop - GI/Abdominal GI/Abdominal exam: Present: soft, normal bowel sounds - Rectal Rectal exam: Present: deferred - Extremities Exam Extremities exam: Present: pedal edema - Back Exam Back exam: Present: normal inspection - Neurological Exam Neurological exam: Present: alert, oriented X3 - Psychiatric Psychiatric exam: Present: normal affect, normal mood - Skin Skin exam: Present: warm, dry, intact, normal color. Absent: rash ED Course Vital Signs 05/30/19 05/30/19 05/30/19 11:47 11:56 12:21 Temperature 98.3 F Pulse Rate 92 H 88 Respiratory 17 20 20 Rate Blood Pressure 165/76 Blood Pressure 178/97 [Right] O2 Sat by Pulse 91 99 98 Oximetry 05/30/19 05/30/19 13:37 14:53 Temperature 98.0 F Pulse Rate 76 81 Respiratory 18 14 Rate Blood Pressure Blood Pressure 142/88 149/93 [Right] O2 Sat by Pulse 98 98 Oximetry ED Medical Decision Making - Lab Data Result diagrams: 05/30/19 12:03 05/30/19 12:03 - EKG Data -: EKG Interpreted by Me Rate: normal - EKG Data When compared to previous EKG there are: no significant change Interpretation: other (lbbb- known) - Radiology Data Radiology results: report reviewed, image reviewed - Medical Decision Making Labs 05/30/19 05/30/19 05/30/19 12:03 12:03 12:03 WBC 7.2 RBC 4.32 Hgb 13.4 Hct 40.6 MCV 94 MCH 31 MCHC 33 RDW 13.7 Plt Count 271 Lymph % (Auto) 28.5 [place] % (Auto) 9.3 H Eos % (Auto) 0.9 Baso % (Auto) 0.8 Lymph # 2.0 [place] # 0.7 Eos # 0.1 Baso # 0.1 Seg Neutrophils % 60.5 Seg Neutrophils # 4.3 PT 13.2 INR 1.01 APTT 27.0 Sodium 144 Potassium 4.5 Chloride 104.0 Carbon Dioxide 27 Anion Gap 18 BUN 13 Creatinine 0.6 L Estimated GFR > 60 BUN/Creatinine Ratio 22 Glucose 246 H Calcium 9.0 Total Bilirubin 0.30 AST 19 ALT 23 Alkaline Phosphatase 104 Troponin T 0.011 NT-Pro-B Natriuret Pep Total Protein 6.7 Albumin 3.3 L Albumin/Globulin Ratio 1.0 Urine Color Urine Turbidity Urine pH Ur Specific [place] Urine Protein Urine Glucose (UA) Urine Ketones Urine Blood Urine Nitrite Urine Bilirubin Urine Urobilinogen Ur Leukocyte Esterase Urine WBC (Auto) Urine RBC (Auto) U Epithel Cells (Auto) Urine Bacteria (Auto) Urine Mucus 05/30/19 05/30/19 12:03 13:37 WBC RBC Hgb Hct MCV MCH MCHC RDW Plt Count Lymph % (Auto) [place] % (Auto) Eos % (Auto) Baso % (Auto) Lymph # [place] # Eos # Baso # Seg Neutrophils % Seg Neutrophils # PT INR APTT Sodium Potassium Chloride Carbon Dioxide Anion Gap BUN Creatinine Estimated GFR BUN/Creatinine Ratio Glucose Calcium Total Bilirubin AST ALT Alkaline Phosphatase Troponin T NT-Pro-B Natriuret Pep 6436 H Total Protein Albumin Albumin/Globulin Ratio Urine Color Yellow Urine Turbidity Slightly-cloudy Urine pH 6.0 Ur Specific [place] 1.019 Urine Protein 100 mg/dl Urine Glucose (UA) 150 Urine Ketones Neg Urine Blood Neg Urine Nitrite Neg Urine Bilirubin Neg Urine Urobilinogen < 2.0 Ur Leukocyte Esterase Mod Urine WBC (Auto) 39.0 H Urine RBC (Auto) 3.0 U Epithel Cells (Auto) 5.0 Urine Bacteria (Auto) 1+ Urine Mucus Few Vital Signs 05/30/19 05/30/19 05/30/19 11:47 11:56 12:21 Temperature 98.3 F Pulse Rate 92 H 88 Respiratory 17 20 20 Rate Blood Pressure 165/76 Blood Pressure 178/97 [Right] O2 Sat by Pulse 91 99 98 Oximetry 05/30/19 13:37 Temperature 98.0 F Pulse Rate 76 Respiratory 18 Rate Blood Pressure Blood Pressure 142/88 [Right] O2 Sat by Pulse [address] Hatfield labs noted ua noted- culture pending xray noted-? pna v atelectasis lasix IV x 1 rocephin IV Discussed with Dr Wen/korey- will follow on admit Discussed with Dr Cesar- will admit for further evaluation. Pt and family updated on the plan of care. - Differential Diagnosis ro acs/chf/pna Critical care attestation.: If time is entered above; I have spent that time in minutes in the direct care of this critically ill patient, excluding procedure time. ED Disposition Clinical Impression: CHF (congestive heart failure), Cough, UTI (urinary tract infection), History of diabetes mellitus, Debility Disposition: DC-09 OP ADMIT IP TO THIS HOSP Is pt being admited?: Yes Does the pt Need Aspirin: No Condition: Stable Time of Disposition: 14:54
[2019-05-30 12:36] LABS: INR 1.01 (0.87-1.13)
[2019-05-30 12:37] LABS: Alanine Aminotransferase 23 units/L (7-56); Albumin 3.3 g/dL (3.9-5); BUN/Creatinine Ratio 22; Blood Urea Nitrogen 13 mg/dL (7-17); Hemolysis Index 11
--- NOTE | 2019-05-30 12:55 | XRay Report ---
CHEST 1 VIEW INDICATION / CLINICAL INFORMATION: Chest Pain. COMPARISON: 03/13/2018 FINDINGS: SUPPORT DEVICES: None. HEART / MEDIASTINUM: No significant abnormality. LUNGS / PLEURA: There is airspace consolidation in both lung bases right greater than left. Small judy unt of pleural fluid on the right. The upper lung zones are clear.. No pneumothorax. ADDITIONAL FINDINGS: No significant additional findings. IMPRESSION: 1. There is bibasilar airspace consolidation could represent atelectasis or pneumonia. Signer Name: Hebert Lainez MD Signed: 05/30/2019 12:51 PM Workstation Name: [id number]
[2019-05-30 14:15] LABS: Bacteria,Urine 1+ /HPF (Negative); Bilirubin,Urine NEG (Negative); Blood,Urine NEG (Negative); Color,Urine Yellow (Yellow); Mucus,Urine FEW /HPF; Urobilinogen,Urine < 2.0 mg/dL (<2.0)
[2019-05-30] MEDS ORDERED: CEFEPIME/NS 2 GM/100 ML 2 GM/100 ML BAG IV ONE (14:36)
--- NOTE | 2019-05-30 17:09 | History and Physical Report ---
History of Present Illness Chief complaint: Im coughing, and i get a little short of breath History of present illness: 83 YO Female with Systolic CHF(EF 20%), CVA, Debility, Dementia, HTN, HLD, DM, GERD, Vertigo, Chronic Respiratory Failure on Home Oxygen @2L via [place] presents to ED for evaluation. Pt states that she has experienced productive cough with Yellowish sputum over the past 4 days with persistent symptoms over the same time frame. Pt reports chest discomfort after coughing episodes. Pt also reports shortness of breath, dypsnea on exertion, dypsnea at rest, decreased exercise tolerance, leg edema. Pt transported to [facility] via private vehicle. Pt seen and evaluated in ED and found to have Bilateral Lower Lobe Pneumonia, Urinary Tract Infection as well as symptoms consistent with CHF Decompensation. Pt admitted to Telemetry. Pt initiated on Pneumonia Protocol, as well as CHF Decompensation protocol. Advanced care planning conducted. Pt and daughter acknowledge understanding and agreement with care plan. Prior admission on 12/03/18 reviewed. All listed medication reconciled at time of admission. Past History Past Medical History: other (se hpi) Past Surgical History: Other (Tubal ligation, Cornea Transplant) Social history: . denies: smoking, alcohol abuse, prescription drug abuse Family history: diabetes, hypertension Medications and Allergies Allergies Allergy/AdvReac Type Severity Reaction Status Date / Time levofloxacin [From Levaquin] Allergy Intermediate Itching Verified 10/26/18 12:05 Home Medications Medication Instructions Recorded Confirmed Last Taken Type Losartan/Hydrochlorothiazide 1 each PO DAILY 02/20/14 12/03/18 12/09/17 23:00 History [Hyzaar 100-25 TAB] Amlodipine Besylate [Norvasc] 5 mg PO DAILY 12/10/17 12/03/18 12/09/17 23:00 History Bimatoprost 0.01%(Nf) [Lumigan 1 drop OU BID 12/10/17 12/03/18 Unknown History 0.01%(Nf)] Carvedilol [Coreg] 25 mg PO BID 12/10/17 12/03/18 Unknown History Clopidogrel [Plavix] 75 mg PO DAILY 12/10/17 12/03/18 Unknown History Furosemide [Lasix] 20 mg PO DAILY 12/10/17 12/03/18 Unknown History Pantoprazole [Protonix TAB] 40 mg PO DAILY 12/10/17 12/03/18 Unknown History glipiZIDE [Glipizide] 5 mg PO BID 12/10/17 12/03/18 Unknown History Aspirin [Aspirin BABY CHEW TAB] 81 mg PO DAILY 03/12/18 12/03/18 Unknown History Docusate Sodium [Colace CAP] 100 mg PO BID PRN 12/03/18 12/03/18 Unknown History Insulin Lispro Protamin/Lispro 24 units SQ BID 12/03/18 12/03/18 Unknown History [HumaLOG Mix 75-25 Kwikpen] AtorvaSTATin [Lipitor] 40 mg PO QHS #60 tab 12/07/18 Unknown Rx Review of Systems Constitutional: no weight loss, no weight gain, no fever, no chills Ears, nose, mouth and throat: no ear pain, no ear discharge, no tinnitis, no decreased hearing, no nose pain Breasts: no change in shape, no swelling Cardiovascular: edema, shortness of breath, dyspnea on exertion, decreased exercise tolerance, no palpitations Respiratory: cough, cough with sputum, shortness of breath, dyspnea on exertion Gastrointestinal: no nausea, no vomiting, no diarrhea, no change in bowel habits Genitourinary Female: no pelvic pain, no flank pain, no menorrhagia, no dysuria, no urinary frequency, no urgency Rectal: no pain, no incontinence, no bleeding Musculoskeletal: no neck stiffness, no neck pain, no shooting arm pain, no shooting leg pain, no leg numbness/tingling, no redness of joints Integumentary: no rash, no pruritis, no redness, no sores, no wounds Neurological: no transient paralysis, no paralysis, no weakness, no parathesias, no numbness, no tingling, no seizures Psychiatric: no anxiety, no memory loss, no change in sleep habits, no sleep disturbances, no insomnia, no hypersomnia, no change in appetite Endocrine: no cold intolerance, no heat intolerance, no polyphagia, no excessive thirst, no polydipsia, no polyuria, no nocturia Hematologic/Lymphatic: no easy bruising, no easy bleeding, no lymphadenopathy, no lymphedema Allergic/Immunologic: no urticaria, no allergic rhinitis, no persistent infections, no anaphylaxis, no angioedema Exam - Constitutional Vitals: Temp Pulse Resp BP Pulse Ox 98.0 F 81 14 149/93 98 11/14/19 13:37 05/30/19 14:53 05/30/19 14:53 05/30/19 14:53 05/30/19 14:53 General appearance: Present: mild distress - EENT Eyes: Present: PERRL ENT: hearing intact, clear oral mucosa - Neck Neck: Present: supple, normal ROM - Respiratory Respiratory effort: normal Respiratory: bilateral: diminished - Cardiovascular Heart Sounds: Present: S1 & S2. Absent: rub, click - Extremities Extremities: pulses symmetrical, No edema Peripheral Pulses: within normal limits - Abdominal General gastrointestinal: Present: soft, non-tender, non-distended, normal bowel sounds Female genitourinary: Present: normal - Integumentary Integumentary: Present: clear, warm, dry - Musculoskeletal Musculoskeletal: generalized weakness - Psychiatric Psychiatric: appropriate mood/affect, intact judgment & insight - Neurologic Neurologic: CNII-XII intact, moves all extremities Results - Labs CBC & Chem 7: 05/30/19 12:03 05/30/19 12:03 Labs: Abnormal lab results 05/30/19 05/30/19 05/30/19 Range/Units 12:03 12:03 12:03 [place] % (Auto) 9.3 H (0.0-7.3) % Creatinine 0.6 L (0.7-1.2) mg/dL Glucose 246 H (65-100) mg/dL NT-Pro-B Natriuret Pep 6436 H (0-900) pg/mL Albumin 3.3 L (3.9-5) g/dL Urine WBC (Auto) (0.0-6.0) /HPF 05/30/19 Range/Units 13:37 [place] % (Auto) (0.0-7.3) % Creatinine (0.7-1.2) mg/dL Glucose (65-100) mg/dL NT-Pro-B Natriuret Pep (0-900) pg/mL Albumin (3.9-5) g/dL Urine WBC (Auto) 39.0 H (0.0-6.0) /HPF Assessment and Plan - Patient Problems (1) Pneumonia Current Visit: Yes Status: Acute Qualifiers: Laterality: bilateral Lung location: lower lobe of lung Plan to address problem: IV antibiotic therapy, supplemental oxygen, pulse oximetry, bnp, chest x ray, Influenza antigen, blood cultures, nebulizer therapy. (2) UTI (urinary tract infection) Current Visit: Yes Status: Acute Qualifiers: Encounter type: initial encounter Plan to address problem: IV antibiotic therapy, urinalysis, CBC, CMP (3) CHF (congestive heart failure) Current Visit: Yes Status: Acute Qualifiers: Heart failure type: systolic Heart failure chronicity: acute on chronic Qualified Code(s): I50.23 - Acute on chronic systolic (congestive) heart failure Plan to address problem: Admit to telemetry, strict I/O, daily weight, BNP, diuresis with lasix, supplemental oxygen, pulse oximetry, afterload reduction, chest x ray. (4) HTN (hypertension) Current Visit: Yes Status: Acute Qualifiers: Hypertension type: essential hypertension Qualified Code(s): I10 - Es sential (primary) hypertension Plan to address problem: Monitor BP q shift, supportive care. (5) HLD (hyperlipidemia) Current Visit: Yes Status: Acute Qualifiers: Hyperlipidemia type: mixed hyperlipidemia Qualified Code(s): E78.2 - Mixed hyperlipidemia Plan to address problem: statin therapy, balanced diet, (6) Diabetes Current Visit: Yes Status: Acute Plan to address problem: ADA diet, insulin, accu check, hypoglycemia protocol. (7) GERD (gastroesophageal reflux disease) Current Visit: Yes Status: Acute Qualifiers: Esophagitis presence: without esophagitis Qualified Code(s): K21.9 - G boo-esophageal reflux disease without esophagitis Plan to address problem: PPI therapy, (8) Chronic respiratory failure Current Visit: Yes Status: Acute Qualifiers: Respiratory failure complication: hypoxia Qualified Code(s): J96.11 - Chronic respiratory failure with hypoxia Plan to address problem: Supplemental oxygen via [place], pulse oximetry, treat Pneumonia, supportive care, pulmonary toilet (9) Advance care planning Current Visit: Yes Status: Acute Plan to address problem: Code Status: Pt is full code, Pt and family acknowledge understanding and agreement with care plan. +30min (10) DVT prophylaxis Current Visit: Yes Status: Acute Plan to address problem: SCD to BLE while in bed,
[2019-05-30] MEDS ORDERED: ALBUTEROL 2.5 MG/3 ML NEBU IH PRN (17:15)
[2019-05-30] MEDS ORDERED: ONDANSETRON 4 MG/2 ML INJ IV PRN (17:15)
[2019-05-30] MEDS ORDERED: ACETAMINOPHEN 325 MG TAB PO PRN (17:15)
[2019-05-30] MEDS ORDERED: DOCUSATE SODIUM 100 MG CAP PO PRN (17:18)
[2019-05-30] MEDS ORDERED: DEXTROSE 50% IN WATER (25GM) 50 ML SYRINGE IV PRN (17:21)
[2019-05-30 18:14] LABS: Free T4 (Free Thyroxine) 1.07 ng/dL (0.76-1.46)
[2019-05-30] MEDS ORDERED: AZITHROMYCIN 500 MG in SODIUM CHLORIDE 0.9% 250ML 250 ML IV SCH (20:00)
[2019-05-30] MEDS: FUROSEMIDE 20 MG/2 ML INJ IV SCH (21:32)
[2019-05-30] MEDS: LATANOPROST 0.005% OPHTH SOLN 2.5 ML OU SCH (21:32)
[2019-05-30] MEDS: carvediloL 25 MG TAB PO SCH (21:33)
[2019-05-30] MEDS ORDERED: BIMATOPROST 0.01% OU SCH (22:00)
[2019-05-30] MEDS: INSULIN LISPRO 100 UNIT/ML SUB-Q SCH (23:01)
[2019-05-31 04:05] LABS: Basophils % (Auto) 0.6 % (0.0-1.8); Eosinophils # (Auto) 0.1 K/mm3 (0.0-0.4); Eosinophils % (Auto) 1.2 % (0.0-4.3); Hematocrit 34.9 % (30.3-42.9); Hemoglobin 12.1 gm/dl (10.1-14.3); Lymphocytes % (Auto) 29.8 % (13.4-35.0); Mean Corpuscular HGB Conc 35 % (30-34); Mean Corpuscular Volume 92 fl (79-97); Monocytes # (Auto) 0.7 K/mm3 (0.0-0.8); Platelet Count 229 K/mm3 (140-440); Red Blood Count 3.79 M/mm3 (3.65-5.03); Red Cell Distribution Width 13.6 % (13.2-15.2)
[2019-05-31 04:29] LABS: Alanine Aminotransferase 16 units/L (7-56); Albumin 2.8 g/dL (3.9-5); BUN/Creatinine Ratio 17; Blood Urea Nitrogen 12 mg/dL (7-17); Calcium 8.6 mg/dL (8.4-10.2); Hemolysis Index 6
[2019-05-31] MEDS: FUROSEMIDE 20 MG/2 ML INJ IV SCH (05:33)
[2019-05-31 08:48] VITALS: BP 152/86
--- NOTE | 2019-05-31 09:42 | Consultation ---
History of Present Illness Consult date: 05/31/19 Consult reason: shortness of breath History of present illness: This is a frail elderly woman with a history of CVA and TIA for which she takes plavix for oral antiplatelet therapy. She also has a known dilated cardiomyopathy, ejection fraction 20-25% by an echocardiogram done two months ago. Patient was brought to this hospital with complaints of shortness of breath, coughs and lower extremity edema. Patient reports she is on home oxygen but reasons are unclear. A chest x-ray report is suggestive of pneumonia with mild interstitial edema. An EKG is sinus rhythm with chronic left bundle branch block. Cardiology consultation has been requested for CHF evaluation and management. Past History Past Medical History: other (se hpi) Past Surgical History: Other (Tubal ligation, Cornea Transplant) Social history: . denies: smoking, alcohol abuse, prescription drug abuse Family history: diabetes, hypertension Medications and Allergies Allergies Allergy/AdvReac Type Severity Reaction Status Date / Time levofloxacin [From Levaquin] Allergy Intermediate Itching Verified 10/26/18 12:05 Home Medications Medication Instructions Recorded Confirmed Last Taken Type Losartan/Hydrochlorothiazide 1 each PO DAILY 02/20/14 12/03/18 12/09/17 23:00 History [Hyzaar 100-25 TAB] Amlodipine Besylate [Norvasc] 5 mg PO DAILY 12/10/17 12/03/18 12/09/17 23:00 History Bimatoprost 0.01%(Nf) [Lumigan 1 drop OU BID 12/10/17 12/03/18 Unknown History 0.01%(Nf)] Carvedilol [Coreg] 25 mg PO BID 12/10/17 12/03/18 Unknown History Clopidogrel [Plavix] 75 mg PO DAILY 12/10/17 12/03/18 Unknown History Furosemide [Lasix] 20 mg PO DAILY 12/10/17 12/03/18 Unknown History Pantoprazole [Protonix TAB] 40 mg PO DAILY 12/10/17 12/03/18 Unknown History glipiZIDE [Glipizide] 5 mg PO BID 12/10/17 12/03/18 Unknown History Aspirin [Aspirin BABY CHEW TAB] 81 mg PO DAILY 03/12/18 12/03/18 Unknown History Docusate Sodium [Colace CAP] 100 mg PO BID PRN 12/03/18 12/03/18 Unknown History Insulin Lispro Protamin/Lispro 24 units SQ BID 12/03/18 12/03/18 Unknown History [HumaLOG Mix 75-25 Kwikpen] AtorvaSTATin [Lipitor] 40 mg PO QHS #60 tab 12/07/18 Unknown Rx Active Meds: Active Medications Acetaminophen (Tylenol) 650 mg PO Q4H PRN PRN Reason: Pain MILD(1-3)/Fever >100.5/[facility] Albuterol (Proventil) 2.5 mg IH Q4HRT PRN PRN Reason: Shortness Of Breath Amlodipine Besylate (Amlodipine) 5 mg PO DAILY [facility] Aspirin (Baby Aspirin) 81 mg PO DAILY [facility] Atorvastatin Calcium (Lipitor) 40 mg PO QHS [facility] Last Admin: 05/30/19 21:33 Dose: 40 mg Documented by: Carvedilol (Coreg) 25 mg PO BID [facility] Last Admin: 05/30/19 21:33 Dose: 25 mg Documented by: Clopidogrel Bisulfate (Plavix) 75 mg PO DAILY [facility] Dextrose (D50w (25gm) Syringe) 50 ml IV Q30MIN PRN; Protocol PRN Reason: Hypoglycemia Docusate Sodium (Colace) 100 mg PO BID PRN PRN Reason: Constipation Enoxaparin Sodium (Enoxaparin) 40 mg SUB-Q QDAY@1000 [facility] Furosemide (Lasix) 20 mg IV BID@0600,1800 [facility] Last Admin: 05/31/19 05:33 Dose: 20 mg Documented by: Hydrochlorothiazide (Hctz) 25 mg PO QDAY [facility] Azithromycin 500 mg/ Sodium (Chloride) 250 mls @ 250 mls/hr IV Q24H [facility]; Protocol Last Admin: 05/30/19 21:32 Dose: 250 mls/hr Documented by: Ceftriaxone Sodium (Rocephin/Ns 2 Gm/100 Ml) 2 gm in 100 mls @ 200 mls/hr IV Q24HR [facility]; Protocol Insulin Human Lispro (Humalog) 0 unit SUB-Q ACHS [facility]; Protocol Last Admin: 05/30/19 23:01 Dose: 3 unit Documented by: Latanoprost (Latanoprost 0.005%) 1 drops OU QPM [facility] Last Admin: 05/30/19 21:32 Dose: 1 drops Documented by: Losartan Potassium (Cozaar) 100 mg PO QDAY [facility] Ondansetron HCl (Zofran) 4 mg IV Q8H PRN PRN Reason: Nausea And Vomiting Pantoprazole Sodium (Protonix) 40 mg PO DAILY [facility] Sodium Chloride (Sodium Chloride Flush Syringe 10 Ml) 10 ml IV BID [facility] Last Admin: 05/30/19 21:37 Dose: 10 ml Documented by: Sodium Chloride (Sodium Chloride Flush Syringe 10 Ml) 10 ml IV PRN PRN PRN Reason: LINE FLUSH Physical Examination Vital Signs Temp Pulse Resp BP Pulse Ox 98.3 F 92 H 17 165/76 91 05/30/19 11:47 05/30/19 11:47 05/30/19 11:47 05/30/19 11:47 05/30/19 11:47 General appearance: no acute distress HEENT: Positive: PERRL Neck: Positive: trachea midline Cardiac: Positive: Reg Rate and Rhythm Lungs: Positive: Normal Breath Sounds Neuro: Positive: Grossly Intact Extremities: Absent: edema Results 05/31/19 02:29 05/31/19 02:29 Cardiac Enzymes 05/30/19 05/31/19 Range/Units 12:03 02:29 AST 19 17 (5-40) units/L Coagulation 05/30/19 Range/Units 12:03 PT 13.2 (12.2-14.9) Sec. INR 1.01 (0.87-1.13) APTT 27.0 (24.2-36.6) Sec. CBC 05/30/19 05/31/19 Range/Units 12:03 02:29 WBC 7.2 6.6 (4.5-11.0) K/mm3 RBC 4.32 3.79 (3.65-5.03) M/mm3 Hgb 13.4 12.1 (10.1-14.3) gm/dl Hct 40.6 34.9 (30.3-42.9) % Plt Count 271 229 (140-440) K/mm3 Lymph # 2.0 2.0 (1.2-5.4) K/mm3 Holt # 0.7 0.7 (0.0-0.8) K/mm3 Eos # 0.1 0.1 (0.0-0.4) K/mm3 Baso # 0.1 0.0 (0.0-0.1) K/mm3 Comprehensive Metabolic Panel 05/30/19 05/31/19 Range/Units 12:03 02:29 Sodium 144 145 (137-145) mmol/L Potassium 4.5 3.3 L D (3.6-5.0) mmol/L Chloride 104.0 104.8 (98-107) mmol/L Carbon Dioxide 27 28 (22-30) mmol/L BUN 13 12 (7-17) mg/dL Creatinine 0.6 L 0.7 (0.7-1.2) mg/dL Glucose 246 H 112 H (65-100) mg/dL Calcium 9.0 8.6 (8.4-10.2) mg/dL AST 19 17 (5-40) units/L ALT 23 16 (7-56) units/L Alkaline Phosphatase 104 82 (35-129) units/L Total Protein 6.7 5.6 L (6.3-8.2) g/dL Albumin 3.3 L 2.8 L (3.9-5) g/dL Assessment and Plan Pneumonia Acute CHF exacerbation UTI Hx of CVA and TIA on plavix Hx of Dilated cardiomyopathy ejection fraction 20-25% 02/2019. LBBB, chronic
[2019-05-31] MEDS ORDERED: LOSARTAN 50 MG TAB PO SCH (10:00)
[2019-05-31] MEDS ORDERED: ENOXAPARIN 40 MG/0.4 ML INJ SUB-Q SCH (10:00)
[2019-05-31] MEDS ORDERED: HYDROCHLOROTHIAZIDE PO SCH (10:00)
[2019-05-31] MEDS ORDERED: amLODIPine 5 MG TAB PO SCH (10:00)
[2019-05-31] MEDS ORDERED: ASPIRIN 81 MG TAB CHEW PO SCH (10:00)
[2019-05-31] MEDS ORDERED: LOSARTAN PO SCH (10:00)
[2019-05-31] MEDS ORDERED: ENOXAPARIN 30 MG/0.3 ML INJ SUB-Q SCH (10:00)
[2019-05-31] MEDS ORDERED: PANTOPRAZOLE 40 MG TAB PO SCH (10:00)
[2019-05-31] MEDS ORDERED: CLOPIDOGREL 75 MG TAB PO SCH (10:00)
[2019-05-31] MEDS ORDERED: cefTRIAXone/NS 2 GM/100 ML 2 GM/100 ML BAG IV SCH (10:00)
[2019-05-31] MEDS ORDERED: hydroCHLOROthiazide 25 MG TAB PO SCH (10:00)
[2019-05-31] MEDS ORDERED: POTASSIUM CHLORIDE ER 20 MEQ TAB PO SCH (12:00)
--- NOTE | 2019-05-31 13:36 | Progress Note ---
Assessment and Plan Assessment and plan: 83-year-old woman who presents to the hospital complaining of shortness of breath and chest pain. Chest x-ray shows bibasilar air space consolidation which could represent atelectasis or pneumonia CHF Acute on chronic systolic heart failure Cardiology input appreciated, patient has been diuresis and is now euvolemic, diuretic switched from IV to by mouth Plan a heart input appreciated Noncompliance/nonadherence to medications Patient was out of some of her cardiac meds for over a week, has been counseled Preventive health counseling provided for 17 minutes Hypokalemia Replaced Bronchitis/community acquired pneumonia? Obtain 2view x-ray, as previous x-ray could be from atelectasis Currently on empiric antibiotics UTI ruled out, urine culture negative diabetes SSI Chronic respiratory failure Continue oxygen, 62 L at all times. DVT prophylaxis Lovenox. Hospitalist Physical - Constitutional Vitals: Temp Pulse Resp BP Pulse Ox 98.0 F 76 18 152/86 97 05/31/19 03:57 05/31/19 08:46 05/31/19 03:55 05/31/19 08:46 05/31/19 08:46 General appearance: Present: no acute distress Results - Labs CBC & Chem 7: 05/31/19 02:29 05/31/19 02:29 Labs: Laboratory Last Values WBC 6.6 K/mm3 (4.5-11.0) 05/31/19 02:29 RBC 3.79 M/mm3 (3.65-5.03) 05/31/19 02:29 Hgb 12.1 gm/dl (10.1-14.3) 05/31/19 02:29 Hct 34.9 % (30.3-42.9) 05/31/19 02:29 MCV 92 fl (79-97) 05/31/19 02:29 MCH 32 pg (28-32) 05/31/19 02:29 MCHC 35 % (30-34) H 05/31/19 02:29 RDW 13.6 % (13.2-15.2) 05/31/19 02:29 Plt Count 229 K/mm3 (140-440) 05/31/19 02:29 Lymph % (Auto) 29.8 % (13.4-35.0) 05/31/19 02:29 [place] % (Auto) 10.0 % (0.0-7.3) H 05/31/19 02:29 Eos % (Auto) 1.2 % (0.0-4.3) 05/31/19 02:29 Baso % (Auto) 0.6 % (0.0-1.8) 05/31/19 02:29 Lymph # 2.0 K/mm3 (1.2-5.4) 05/31/19 02:29 [place] # 0.7 K/mm3 (0.0-0.8) 05/31/19 02:29 Eos # 0.1 K/mm3 (0.0-0.4) 05/31/19 02:29 Baso # 0.0 K/mm3 (0.0-0.1) 05/31/19 02:29 Seg Neutrophils % 58.4 % (40.0-70.0) 05/31/19 02:29 Seg Neutrophils # 3.8 K/mm3 (1.8-7.7) 05/31/19 02:29 PT 13.2 Sec. (12.2-14.9) 05/30/19 12:03 INR 1.01 (0.87-1.13) 05/30/19 12:03 APTT 27.0 Sec. (24.2-36.6) 05/30/19 12:03 Sodium 145 mmol/L (137-145) 05/31/19 02:29 Potassium 3.3 mmol/L (3.6-5.0) L D 05/31/19 02:29 Chloride 104.8 mmol/L (98-107) 05/31/19 02:29 Carbon Dioxide 28 mmol/L (22-30) 05/31/19 02:29 Anion Gap 16 mmol/L 05/31/19 02:29 BUN 12 mg/dL (7-17) 05/31/19 02:29 Creatinine 0.7 mg/dL (0.7-1.2) 05/31/19 02:29 Estimated GFR > 60 ml/min 05/31/19 02:29 BUN/Creatinine Ratio 17 % 05/31/19 02:29 Glucose 112 mg/dL (65-100) H 05/31/19 02:29 POC Glucose 203 (70-105) H 05/31/19 12:23 Lactic Acid 1.60 mmol/L (0.7-2.0) 05/30/19 16:02 Calcium 8.6 mg/dL (8.4-10.2) 05/31/19 02:29 Magnesium 1.70 mg/dL (1.7-2.3) 05/30/19 17:25 Total Bilirubin 0.40 mg/dL (0.1-1.2) 05/31/19 02:29 AST 17 units/L (5-40) 05/31/19 02:29 ALT 16 units/L (7-56) 05/31/19 02:29 Alkaline Phosphatase 82 units/L (35-129) 05/31/19 02:29 Troponin T 0.010 ng/mL (0.00-0.029) 05/30/19 15:02 NT-Pro-B Natriuret Pep 6436 pg/mL (0-900) H 05/30/19 12:03 Total Protein 5.6 g/dL (6.3-8.2) L 05/31/19 02:29 Albumin 2.8 g/dL (3.9-5) L 05/31/19 02:29 Albumin/Globulin Ratio 1.0 % 05/31/19 02:29 TSH 1.290 mlU/mL (0.270-4.200) 05/30/19 17:25 Free T4 1.07 ng/dL (0.76-1.46) 05/30/19 17:25 Urine Color Yellow (Yellow) 05/30/19 13:37 Urine Turbidity Slightly-cloudy (Clear) 05/30/19 13:37 Urine pH 6.0 (5.0-7.0) 05/30/19 13:37 Ur Specific [place] 1.019 (1.003-1.030) 05/30/19 13:37 Urine Protein 100 mg/dl mg/dL (Negative) 05/30/19 13:37 Urine Glucose (UA) 150 mg/dL (Negative) 05/30/19 13:37 Urine Ketones Neg mg/dL (Negative) 05/30/19 13:37 Urine Blood Neg (Negative) 05/30/19 13:37 Urine Nitrite Neg (Negative) 05/30/19 13:37 Urine Bilirubin Neg (Negative) 05/30/19 13:37 Urine Urobilinogen < 2.0 mg/dL (<2.0) 05/30/19 13:37 Ur Leukocyte Esterase Mod (Negative) 05/30/19 13:37 Urine WBC (Auto) 39.0 /HPF (0.0-6.0) H 05/30/19 13:37 Urine RBC (Auto) 3.0 /HPF (0.0-6.0) 05/30/19 13:37 U Epithel Cells (Auto) 5.0 /HPF (0-13.0) 05/30/19 13:37 Urine Bacteria (Auto) 1+ /HPF (Negative) 05/30/19 13:37 Urine Mucus Few /HPF 05/30/19 13:37 Active Medications - Current Medications Current Medications: Generic Name Dose Route Start Last Admin Trade Name Freq PRN Reason Stop Dose Admin Acetaminophen 650 mg 05/30/19 17:15 Tylenol PO Q4H PRN Pain MILD(1-3)/Fever >100.5/[facility] Albuterol 2.5 mg 05/30/19 17:15 Proventil IH Q4HRT PRN Shortness Of Breath Amlodipine Besylate 5 mg 05/31/19 10:00 Amlodipine PO DAILY [facility] Aspirin 81 mg 05/31/19 10:00 Baby Aspirin PO DAILY [facility] Atorvastatin Calcium 40 mg 05/30/19 22:00 05/30/19 21:33 Lipitor PO 40 mg QHS [facility] Administration Carvedilol 25 mg 05/30/19 22:00 05/30/19 21:33 Coreg PO 25 mg BID [facility] Administration Clopidogrel Bisulfate 75 mg 05/31/19 10:00 Plavix PO DAILY [facility] Dextrose 50 ml 05/30/19 17:21 D50w (25gm) Syringe IV Q30MIN PRN Hypoglycemia Protocol Docusate Sodium 100 mg 05/30/19 17:18 Colace PO BID PRN Constipation Enoxaparin Sodium 40 mg 05/31/19 10:00 Enoxaparin SUB-Q QDAY@1000 [facility] Furosemide 40 mg 06/01/19 06:00 Lasix PO DAILY@0600 [facility] Hydrochlorothiazide 25 mg 05/31/19 10:00 Hctz PO QDAY [facility] Azithromycin 500 mg/ Sodium 250 mls @ 250 mls/hr 05/30/19 20:00 05/30/19 21:32 Chloride IV 250 mls/hr Q24H [facility] Administration Protocol Ceftriaxone Sodium 2 gm in 100 mls @ 200 mls/hr 05/31/19 10:00 Rocephin/Ns 2 Gm/100 Ml IV Q24HR [facility] Protocol Insulin Human Lispro 0 unit 05/30/19 22:00 05/30/19 23:01 Humalog SUB-Q 3 unit ACHS [facility] Administration Protocol Latanoprost 1 drops 05/30/19 18:00 05/30/19 21:32 Latanoprost 0.005% OU 1 drops QPM [facility] Administration Losartan Potassium 100 mg 05/31/19 10:00 Cozaar PO QDAY [facility] Ondansetron HCl 4 mg 05/30/19 17:15 Zofran IV Q8H PRN Nausea And Vomiting Pantoprazole Sodium 40 mg 05/31/19 10:00 Protonix PO DAILY [facility] Potassium Chloride 40 meq 05/31/19 12:00 K-Dur PO 06/02/19 11:59 QDAY [facility] Sodium Chloride 10 ml 05/30/19 22:00 05/30/19 21:37 Sodium Chloride Flush Syringe 10 Ml IV 10 ml BID [facility] Administration Sodium Chloride 10 ml 05/30/19 17:15 Sodium Chloride Flush Syringe 10 Ml IV PRN PRN LINE FLUSH
--- NOTE | 2019-05-31 14:12 | XRay Report ---
CHEST 2 VIEWS INDICATION: sob, pna. COMPARISON: 05/30/2019 FINDINGS: Support devices: None. Heart: Within normal limits. Lungs/pleura: Small left pleural effusion and moderate right pleural effusion are identified. There i s compressive atelectasis of the lower lung zones. No obvious pneumonia. No pneumothorax. Additional findings: None. IMPRESSION: CHF. Signer Name: Mode Bird Jr, MD Signed: 05/31/2019 2:07 PM Workstation Name: [id number]
--- NOTE | 2019-05-31 16:00 | Discharge Summary ---
Providers - Providers Date of Admission: 05/30/19 16:31 Attending physician: JORGE JEFFERSON MD 05/30/19 16:34 Consult to Physician [CONS] Stat Comment: Consulting Provider: ISAI GONZALES Physician Instructions: Reason For Exam: sob Primary care physician: MANAGER MACHINE Hospitalization Condition: Stable Hospital course: 83-year-old woman who presents to the hospital complaining of shortness of breath and chest pain. Chest x-ray shows mild pul edema CHF Acute on chronic systolic heart failure Cardiology input appreciated, patient has been diuresis and is now euvolemic, diuretic switched from IV to by mouth [place] heart input appreciated Noncompliance/nonadherence to medications Patient was out of some of her cardiac meds for over a week, has been counseled Preventive health counseling provided for 17 minutes Hypokalemia Replaced PNA ruled out UTI ruled out, urine culture negative diabetes SSI Chronic respiratory failure Continue oxygen, on 2 L at all times. DVT prophylaxis Lovenox. Disposition: [id number]-06 HOME UNDER HOME [facility] Time spent for discharge: 33 mins Core Measure Documentation - Palliative Care Palliative Care/ Comfort Measures: Not Applicable - Core Measures Any of the following diagnoses?: heart failure - Heart Failure Discharge Requirements SURJIT/ARB for LVSD if EF <40%: Yes Beta chayo at discharge: Yes Exam - Constitutional Vitals: Temp Pulse Resp BP Pulse Ox 98.0 F 76 18 152/86 97 05/31/19 03:57 05/31/19 08:46 05/31/19 03:55 05/31/19 08:46 05/31/19 08:46 General appearance: Present: no acute distress, well-nourished - EENT Eyes: Present: PERRL ENT: hearing intact, clear oral mucosa - Neck Neck: Present: supple, normal ROM - Respiratory Respiratory effort: normal Respiratory: bilateral: CTA - Cardiovascular Heart Sounds: Present: S1 & S2. Absent: rub, click - Extremities Extremities: pulses symmetrical, No edema Peripheral Pulses: within normal limits - Abdominal General gastrointestinal: Present: soft, non-tender, non-distended, normal bowel sounds Female genitourinary: Present: normal - Integumentary Integumentary: Present: clear, warm, dry - Musculoskeletal Musculoskeletal: gait normal, strength equal bilaterally - Psychiatric Psychiatric: appropriate mood/affect, intact judgment & insight - Neurologic Neurologic: CNII-XII intact, moves all extremities Plan Follow up with: RUSS TAM MD [Staff Physician] - 7 Days PRIMARY CARE, [Primary Care Provider] - 7 Days Prescriptions: AtorvaSTATin [Lipitor] 40 mg PO QHS #90 tab Docusate Sodium [Colace CAP] 100 mg PO BID PRN #180 cap PRN Reason: Constipation carvediloL [Coreg] 25 mg PO BID #180 tablet Losartan [Cozaar] 100 mg PO QDAY #30 tablet glipiZIDE XL [Glucotrol Xl] 5 mg PO QAM #90 tab.er.24 Aspirin EC [Halfprin EC] 81 mg PO QDAY #30 tablet. Potassium Chloride [K-Dur] 20 meq PO QDAY #90 tablet Furosemide [Lasix TAB] 40 mg PO DAILY@0600 #90 tablet Bimatoprost 0.01%(Nf) [Lumigan 0.01%(Nf)] 1 drop OU BID #1 bottle Amlodipine Besylate [Norvasc] 5 mg PO DAILY #90 Clopidogrel [Plavix] 75 mg PO DAILY #90 Pantoprazole [Protonix TAB] 40 mg PO DAILY #90
[2019-05-31] MEDS: INSULIN LISPRO 100 UNIT/ML SUB-Q SCH ×3 (16:27→18:38)
[2019-05-31] MEDS: LATANOPROST 0.005% OPHTH SOLN 2.5 ML OU SCH (20:02)
[2019-05-31] MEDS: carvediloL 25 MG TAB PO SCH (20:02)
[2019-06-01] MEDS ORDERED: FUROSEMIDE 40 MG TAB PO SCH (06:00)
== END 2019-05-31 20:30 | disposition home health service (06) | DRG 292 ==
LOC: ED 11:38 → 4A 16:31
PROVIDERS: ADMIT Internal Medicine; ATTEND Internal Medicine
DX: I11.0 Hypertensive heart disease with heart failure (principal); J96.11 Chronic respiratory failure with hypoxia; I50.23 Acute on chronic systolic (congestive) heart failure; I42.0 Dilated cardiomyopathy; E11.9 Type 2 diabetes mellitus without complications; K21.9 Gastro-esophageal reflux disease without esophagitis; E78.2 Mixed hyperlipidemia; E87.6 Hypokalemia; F03.90 Unspecified dementia, unspecified severity, without behavioral disturbance, psychotic disturbance, mood disturbance, and anxiety; I44.7 Left bundle-branch block, unspecified; E78.5 Hyperlipidemia, unspecified; Z99.81 Dependence on supplemental oxygen; Z82.49 Family history of ischemic heart disease and other diseases of the circulatory system; Z83.3 Family history of diabetes mellitus; Z98.51 Tubal ligation status; Z94.7 Corneal transplant status; Z88.1 Allergy status to other antibiotic agents; Z79.82 Long term (current) use of aspirin; Z79.4 Long term (current) use of insulin; Z86.73 Personal history of transient ischemic attack (TIA), and cerebral infarction without residual deficits; Z91.14 Patient's other noncompliance with medication regimen; Z79.899 Other long term (current) drug therapy; I25.2 Old myocardial infarction
CPT/HCPCS: 36415; 71045; 71046; 80053; 81001; 82140; 82962; 83735; 83880; 84439; 84443; 84484; 85025; 85610; 85730; 87040; 87086; 93005; 93010; 94760; 96365; 96375; G0378; A9270-GY; J0456; J0692; J0696; J1650; J1815; J1940; J7050